=== PATIENT | female | born 1930 | race African-American/Black ===

== ENCOUNTER → 2016-09-11 | Outpatient (CLI) | payer MEDICARE, BC ==
--- NOTE | 2016-09-12 08:08 | XCELERA REPORT ---
[address] [address] Lower Extremity Arterial Evaluation Name: MIMI VALENTIN Age: 86 yrs Gender: Female : 1930 Patient Status: Outpatient Patient Location: Study Date: 09/11/2016 01:23 PM Procedure: A color flow and duplex scan of the lower extremity arteries was performed bilaterally with velocity and waveform anaylsis. Ankle brachial indicies performed. Reason For Study: ULCER Ordering Physician: NIYAH AGUILAR Performed By: Linwood Durham Measurements and Calculations Right Left POLITICAL RESEARCH SCIENTIST PSV 137.5 122.6 cm/sec Prox PFA PSV -113.1 -109.6 cm/sec Dist SFA PSV -130.4 -143.2 cm/sec Prox Pop A PSV 145.8 90.4 cm/sec Dist MEHRAN PSV 51.1 cm/sec Prox HULLER OPERATOR PSV 67.2 cm/sec Dist HULLER OPERATOR PSV 33.2 cm/sec Brayan Pedis PSV -65.3 -71.2 cm/sec Right Side Arterial Evaluation Normal velocity, biphasic waveform present, from the Common Femoral artery to the Popliteal artery. Occluded Anterior and Posterior Tibial arteries. Monophasic reconstitution in the Dorsalis Pedis. None in the Posterior Tibial artery. A collateral Brach of the posterior Tibial artery is noted, monophasic flow, 0.4 cm/sec. The ankle-brachial index was not obtainable. 0-19 % stenosis is noted at the inflow, with severe sequential changes. Left Side Arterial Evaluation Normal velocity, triphasic waveform present, from the Common Femoral artery to the Popliteal artery. Occluded Posterior Tibial arteries. Monophasic reconstitution in the Posterior Tibial. Monophasic flow in the Anterior Tibial artery. The ankle-brachial index was not obtainable. 50-99 % stenosis is noted at the Anterior Tibial artery with , with severe sequential changes. Interpretation Summary Severe hemodynamically significant lesions in the bilateral lower extremities, on duplex imaging, at rest. Really worse on the right, with barely any flow visible in the distal right foot. : NIYAH AGUILAR > Brandon Barnes
--- NOTE | 2016-09-12 10:29 | XCELERA REPORT ---
[address] [address] Lower Extremity Venous Evaluation Name: MIMI VALENTIN Age: 86 yrs Gender: Female : 1930 Patient Status: Outpatient Patient Location: Study Date: 09/11/2016 02:03 PM Reason For Study: ULCER Ordering Physician: NIYAH AGUILAR Performed By: Linwood Durham Right Sided Venous Evaluation Deep venous system evaluatiion shows patent veins with no obstruction or significant reflux identified. Sapheno Femoral junction: No reflux. Femoral vein reflux: No reflux. Greater Saphenous vein, Proximal thigh: reflux: No reflux. Greater Saphenous vein, Distal thigh: reflux:No reflux. Greater Saphenous vein, Proximal below knee: reflux: No reflux. No significant Perforators identified. Left Sided Venous Evaluation Deep venous system evaluatiion shows patent veins with no obstruction or significant reflux identified. Sapheno Femoral junction: No reflux. Femoral vein reflux: No reflux. Greater Saphenous vein, Proximal thigh: reflux: No reflux. Greater Saphenous vein, Distal thigh: reflux:No reflux. Greater Saphenous vein, Proximal below knee: reflux: No reflux. No significant Perforators identified. Interpretation Summary No duplex evidence of DVT or obstruction in the bilateral lower extremities. No significant reflux found. : NIYAH AGUILAR > Brandon Barnes
== END ==
LOC: SP 12:22
PROVIDERS: ATTEND Nurse Practitioner Family
DX: L97.222 Non-pressure chronic ulcer of left calf with fat layer exposed (principal)
CPT/HCPCS: 93925; 93970

== ENCOUNTER 2017-01-23 16:48 | Observation (INO) | payer MEDICARE, BC ==
--- NOTE | 2017-01-23 17:40 | RADIOLOGY REPORT (SQ) ---
EXAM DESCRIPTION: CHEST SINGLE VIEW COMPLETED DATE/TIME: 01/23/2017 5:25 pm REASON FOR STUDY: evaluate for free air COMPARISON: 10/28/2015 EXAM PARAMETERS: NUMBER OF VIEWS: One view. TECHNIQUE: Single frontal radiographic view of the chest acquired. RADIATION DOSE: NA LIMITATIONS: None. FINDINGS: LUNGS AND PLEURA: No consolidation, masses or pneumothorax. Similar left basilar scarring at the costophrenic angle. No significant pleural effusion. MEDIASTINUM AND HILAR STRUCTURES: Stable. HEART AND VASCULAR STRUCTURES: Stable. BONES: No acute findings. HARDWARE: None in the chest. OTHER: No free intraperitoneal gas identified. IMPRESSION: NO ACUTE RADIOGRAPHIC FINDING IN THE CHEST.No free intraperitoneal gas identified. TECHNICAL DOCUMENTATION: JOB ID: [id number]
--- NOTE | 2017-01-23 18:28 | ER Document Report ---
ED General - General Chief Complaint: Vomiting Stated Complaint: ABDOMINAL PAIN Time Seen by Provider: 01/23/17 18:09 Mode of Arrival: Ambulatory Information source: Patient Notes: 86-year-old female hypertension, arthritis, GERD who presents to the emergency room with an episode of nausea vomiting and upper abdominal discomfort after eating an orange. He was given IV Zofran by EMS. She states her symptoms have resolved. This time, she any discomfort. Surgical history: Appendectomy, cholecystectomy, hysterectomy TRAVEL OUTSIDE OF THE [place] IN LAST 30 DAYS: No - HPI Onset: Just prior to arrival Onset/Duration: Sudden Quality of pain: Dull Severity: Mild Pain Level: 1 Associated symptoms: Nausea, Vomiting. denies: Chills, Diarrhea, Fever, Sinus pain/drainage Exacerbated by: Denies Relieved by: Denies Similar symptoms previously: No Recently seen / treated by doctor: No - Related Data Allergies/Adverse Reactions: No Known Allergies Allergy (Verified 01/23/17 17:01) Past Medical History - General Information source: Patient - Social History Smoking Status: Never Smoker Cigarette use (# per day): No Chew tobacco use (# tins/day): No Frequency of alcohol use: None Drug Abuse: None Lives with: Alone Family History: Reviewed & Not Pertinent Patient has suicidal ideation: No Patient has homicidal ideation: No - Past Medical History Cardiac Medical History: Reports: Hx Congestive Heart Failure, Hx Hypercholesterolemia, Hx Hypertension Pulmonary Medical History: Reports: Hx Asthma Endocrine Medical History: Reports: Hx Diabetes Mellitus Type 2 Musculoskeltal Medical History: Reports Hx Arthritis Past Surgical History: Reports: Hx Appendectomy, Hx Cardiac Surgery - Stent, Hx Cholecystectomy, Hx Hysterectomy, Hx Orthopedic Surgery - bilateral knee replacement - Immunizations Hx Diphtheria, Pertussis, Tetanus Vaccination: Yes Review of Systems - Review of Systems Constitutional: denies: Chills, Fever EENT: No symptoms reported Cardiovascular: No symptoms reported Respiratory: No symptoms reported Gastrointestinal: See HPI Genitourinary: No symptoms reported Female Genitourinary: No symptoms reported Musculoskeletal: No symptoms reported Skin: No symptoms reported Hematologic/Lymphatic: No symptoms reported Neurological/Psychological: No symptoms reported Physical Exam - Vital signs Vitals: Resp 20 01/23/17 17:01 Notes: Physical exam: GENERAL: 6-year-old female, alert and oriented 3, lying in the stretcher. Patient is comfortable in no distress HEAD: Atraumatic, normocephalic. EYES: Pupils equal round and reactive to light, extraocular movements intact, sclera anicteric, conjunctiva are normal. ENT: TMs normal, nares patent, oropharynx clear without exudates. Moist mucous membranes. NECK: Normal range of motion, supple without lymphadenopathy or JVD. LUNGS: Breath sounds clear to auscultation bilaterally and equal. No wheezes rales or rhonchi. HEART: Regular rate and rhythm without murmurs, rubs or gallops. ABDOMEN: Soft, normoactive bowel sounds. No tenderness to palpation. No guarding, no rebound. No masses appreciated. EXTREMITIES: Normal range of motion, no pitting or edema. No clubbing or cyanosis. NEUROLOGICAL: Cranial nerves II through XII grossly intact. Normal speech, normal gait. PSYCH: Normal mood, normal affect. SKIN: Warm, Dry, normal turgor, no rashes or lesions noted. Bedside ultrasound: No evidence of AAA Course - Re-evaluation Re-evalutation: 01/23/17 22:32 The patient as well as her son who is at the bedside about the pulmonary nodule. Informed them that this needs to be followed up by the primary care doctor. The presenting symptoms, the plan will be for gentle IV fluids and observation - Vital Signs Vital signs: Temp Pulse Resp BP Pulse Ox 97.7 F 18 183/73 H 95 01/23/17 17:04 01/23/17 18:01 01/23/17 18:01 01/23/17 18:01 - Laboratory Result Diagrams: 01/23/17 18:42 01/23/17 18:42 Laboratory results interpreted by me: 01/23/17 01/23/17 01/23/17 17:40 18:42 18:42 WBC 12.7 H MCH 26.6 L RDW 19.0 H Seg Neuts % (Manual) 87 H Band Neutrophils % 1 L Lymphocytes % (Manual) 8 L Abs Neuts (Manual) 11.2 H BUN 24 H Glucose 128 H AST 53 H ALT 69 H Alkaline Phosphatase 224 H Urine Protein 100 H Urine Ascorbic Acid 20 H - Diagnostic Test Radiology reviewed: Image reviewed, Reports reviewed - DVT shows no intra- abdominal pathology. It does show pulmonary nodule. - EKG Interpretation by Me Rate: Normal Rhythm: NSR - EKG shows normal sinus rhythm with a ventricular rate of 70, left axis deviation, no acute ST-T wave changes Discharge - Discharge Clinical Impression: Vomiting With nausea, DeHydration Condition: Stable Disposition: ADMITTED OBSERVATION Admitting Provider: Yovany Salmeron Unit Admitted: Telemetry
[2017-01-23 18:31] LABS: APPEARANCE,URINE CLEAR; BILIRUBIN,URINE NEGATIVE (NEGATIVE); GLUCOSE, URINE NEGATIVE (NEGATIVE); KETONES,URINE NEGATIVE (NEGATIVE); LEUKOCYTE ESTERASE,URINE NEGATIVE (NEGATIVE); NITRITE,URINE NEGATIVE (NEGATIVE); PROTEIN,URINE 100 mg/dL (NEGATIVE); URINE SPECIFIC GRAVITY 1.008; UROBILINOGEN,URINE NEGATIVE mg/dL (<2.0)
[2017-01-23 18:54] LABS: HEMATOCRIT 40.4 % (36.0-47.0); HEMOGLOBIN 13.1 g/dL (12.0-15.5); HGB HCT DIFFERENCE -1.1; MEAN CORPUSCULAR HEMOGLOBIN 26.6 pg (27.0-33.4); MEAN CORPUSCULAR HGB CONC 32.4 g/dL (32.0-36.0); MEAN CORPUSCULAR VOLUME 82 fl (80-97); RED BLOOD COUNT 4.93 10^6/uL (3.72-5.28); WHITE BLOOD COUNT 12.7 10^3/uL (4.0-10.5)
[2017-01-23 19:13] LABS: ALANINE AMINOTRANSFERASE 69 U/L (9-52); ALKALINE PHOSPHATASE 224 U/L (38-126); ANION GAP 10 (5-19); ASPARTATE AMINO TRANSFERASE 53 U/L (14-36); BILIRUBIN,DIRECT 0.3 mg/dL (0.0-0.4); BILIRUBIN,TOTAL 0.6 mg/dL (0.2-1.3); BLOOD UREA NITROGEN 24 mg/dL (7-20); CALCIUM 9.3 mg/dL (8.4-10.2); CARBON DIOXIDE 28 mmol/L (22-30); CHLORIDE 101 mmol/L (98-107); CREATININE RESULT 0.83 mg/dL (0.52-1.25); GLUCOSE 128 mg/dL (75-110); POTASSIUM 4.3 mmol/L (3.6-5.0); PROTHROMBIN TIME 13.2 SEC (11.4-15.4); SODIUM 138.6 mmol/L (137-145); TOTAL PROTEIN 6.8 g/dL (6.3-8.2)
[2017-01-23 19:21] LABS: BAND NEUTROPHILS % (MANUAL) 1 % (3-5); BASOPHILS % (MANUAL) 0 % (0-2); EOSINOPHILS % (MANUAL) 1 % (0-6); LYMPHOCYTES % (MANUAL) 8 % (13-45); TOTAL CELLS COUNTED 100
[2017-01-23 19:22] LABS: ANISOCYTOSIS 2+
[2017-01-23 19:24] LABS: HYPOCHROMASIA SLIGHT; OVALOCYTES 2+; POIKILOCYTOSIS 1+
[2017-01-23 19:25] LABS: PLATELET CLUMPS PRESENT; TARGET CELLS SLIGHT; TEAR DROP CELLS SLIGHT
[2017-01-23 19:26] LABS: TOXIC GRANULATION SLIGHT
--- NOTE | 2017-01-23 21:13 | RADIOLOGY REPORT (SQ) ---
EXAM DESCRIPTION: CT ABD/PELVIS WITH IV ONLY COMPLETED DATE/TIME: 01/23/2017 8:45 pm REASON FOR STUDY: abd pain COMPARISON: 12/05/2011 and 03/26/2013 TECHNIQUE: CT scan of the abdomen and pelvis performed using helical scanning technique with dynamic intravenous contrast injection. No oral contrast. Images reviewed with lung, soft tissue, and bone windows. Reconstructed coronal and sagittal MPR images reviewed. Delayed images for evaluation of the urinary system also acquired. All images stored on PACS. All CT scanners at this facility use dose modulation, iterative reconstruction, and/or weight based d osing when appropriate to reduce radiation dose to as low as reasonably achievable (ALARA). [facility]: Dose Right [facility]: CareDose [facility]: Dose Right [facility]: Teradose 4D [facility]: [employer] CONTRAST TYPE AND DOSE: contrast/concentration: Isovue 370.00 mg/ml; Total Contrast Delivered: 94.0 ml; Total Saline Delivered: 71.0 ml RENAL FUNCTION: GFR > 60. RADIATION DOSE: Up-to-date CT equipment and radiation dose reduction techniques were employed. CTDIv ol: 11.0 - 15.6 mGy. DLP: 1393 mGy-cm.. LIMITATIONS: None. FINDINGS: LOWER CHEST: New 16 x 24 mm low-density nodule in the right infrahilar lower lobe. Small left pleural effusion and lower lobe subsegmental atelectasis. LIVER: Normal size. No masses or dilated ducts. SPLEEN: Normal size. No focal lesions. PANCREAS: No masses. No significant calcifications. No adjacent inflammation or peripancreatic fluid collections. Pancreatic duct not dilated. GALLBLADDER: Surgically absent. ADRENAL GLANDS: No significant masses or asymmetry. RIGHT KIDNEY AND URETER: Slightly increased size and number of cysts. No solid masses. No signific ant calcifications. No hydronephrosis or hydroureter. LEFT KIDNEY AND URETER: Slightly increased size and number of cysts. No solid masses. No significa nt calcifications. No hydronephrosis or hydroureter. AORTA AND VESSELS: No aneurysm. No dissection. Renal arteries, SMA, celiac without stenosis. RETROPERITONEUM: No retroperitoneal adenopathy, hemorrhage or masses. BOWEL AND PERITONEAL CAVITY: Sigmoid diverticulosis. No inflammatory changes. No free fluid or perit agudelo masses. APPENDIX: Not visualized. PELVIS: Prior hysterectomy. No free fluid. Normal bladder. ABDOMINAL WALL: No masses. No hernias. BONES: No significant or acute findings. OTHER: No other significant finding. IMPRESSION: NO ACUTE FINDING IN THE ABDOMEN OR PELVIS ON CT SCAN WITH IV CONTRAST.New 16 x 24 mm low -density nodule in the right infrahilar lower lobe. Small left pleural effusion and lower lobe subseg mental atelectasis. TECHNICAL DOCUMENTATION: JOB ID: [id number] Quality ID # [id number]: Final reports with documentation of one or more dose reduction techniques (e.g., Au tomated exposure control, adjustment of the mA and/or kV according to patient size, use of iterative reconstruction technique) 2010 [employer]- All Rights Reserved
[2017-01-23] MEDS ORDERED: NORMAL SALINE 1000 ML 1,000 ML IV PRN (21:59)
[2017-01-23] MEDS ORDERED: ONDANSETRON HCL INJ/PF 4 MG/2 ML SDV IV ONE (22:00)
--- NOTE | 2017-01-23 22:24 | EKG REPORT ---
SEVERITY:- ABNORMAL ECG - SINUS RHYTHM PROBABLE LEFT ATRIAL ABNORMALITY LEFT AXIS DEVIATION LEFT VENTRICULAR HYPERTROPHY : Confirmed by: Caio Rebollar 23-Jan-2017 22:23:57
[2017-01-24] MEDS ORDERED: DEXTROSE 50%-WATER 25 GM/50 ML DISP.SYRIN IV PRN ×2 (00:46)
[2017-01-24] MEDS ORDERED: DEXTROSE 40% GEL 15 GM TUBE PO PRN ×2 (00:46)
[2017-01-24] MEDS ORDERED: INSULIN LISPRO 100 UNIT/ML 3 ML VIAL SUBCUT PRN (00:46)
[2017-01-24] MEDS ORDERED: GLUCAGON,HUMAN RECOMB 1 MG INJ IM PRN (00:46)
[2017-01-24] MEDS ORDERED: NORMAL SALINE 1000 ML 500 ML IV PRN (00:48)
[2017-01-24] MEDS ORDERED: PROMETHAZINE HCL 25 MG TABLET PO PRN (00:55)
[2017-01-24 00:57] LABS: ADD ON TESTING BLD IN LAB ACKNOWLEDGE
--- NOTE | 2017-01-24 01:12 | PDOC H&P ---
History of Present Illness Admission Date/PCP: 01/23/17 22:25 Shakira Patient complains of: N/V, epig pain History of Present Illness: MIMI VALENTIN is a 86 year old -[place] female with underlying hypertension , stented coronary artery, diastolic congestive heart failure, arthritis, mild reflux, diet-controlled diabetes mellitus, hypothyroidism, and hyperlipidemia who presents to the emergency room for evaluation of sudden onset of nausea vomiting and upper abdominal discomfort earlier the day of admission after eating an orange. Patient has been discussed with emergency room physician who evaluated the patient. Patient feels better now, with epigastric pain having resolved. Still mildly nauseated. No chest pain. No diarrhea or dysuria. No friends or family with similar complaints. Laboratory results are listed in [facility] and are reviewed. X-ray summary results are listed below, with full report(s) reviewed. . EKG reviewed and compared to prior tracing from October 27 of last year. Social history/personal habits: . Lives alone. 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 No use of alcohol tobacco or illicit drugs. Allergies/adverse reactions are listed in [facility] and are reviewed. Home medications initially autopopulated into [employer] may not accurately reflect patient's true medications, dosages, and/or frequencies. dictaphone technician to reconcile medications. Unfortunately, patient not certain of all medications/dosages/frequencies. REVIEW OF SYSTEMS: Constitutional: No fever or chills. Eyes: Wears reading glasses. ENT: No swallowing problems or complaints. Denies hearing loss. Pulmonary: No current complaints. Cardiovascular: No current complaints, including chest pain. Gastrointestinal: See history and present illness. Skin: No current complaints, including rashes. Hematologic: Denies easy bruising. Neurologic: No current complaints, including numbness or tingling. Musculoskeletal: Joint pain from arthritis. Psychiatric: Denies anxiety or depression. Endocrine: No current complaints, including polyuria. Genitourinary: No current complaints, including dysuria. PHYSICAL EXAMINATION: 5 feet tall. 74.8 kg. BMI 32.2 kg/m. Blood pressure 194/72. Pulse 62 and regular. 97% saturation on room air. Respirations are 21 and unlabored. Temperature 97.7. Slightly obese otherwise well-developed elderly -[place] female who appears perhaps a bit younger than her stated age. Pleasant awake alert and cooperative, although appears perhaps slightly fatigued. Mildly anxious, without agitation. Son is present at her side; patient approves. Skin is warm and dry. No grossly obvious evidence of rash in areas of skin examined. No subcutaneous nodules palpated. ENT: Hearing grossly normal to normal conversation. Tongue midline on protrusion pink and slightly tacky. Eyes: No scleral icterus. Pupils equal and reactive to light at 4 mm. [place] conjunctivae. Neck is supple and nontender to gentle active range of motion and palpation. Midline trachea. No palpable thyroid nodule mass enlargement or tenderness. Lymphatic: No palpable cervical or clavicular nodes. Neck and lymphatic exams limited by patient body habitus. Psychiatric: Reasonable insight into acute and chronic medical issues. Oriented to time location and why here. Lungs: Auscultation reveals clear and equal breath sounds bilaterally. No use of accessory respiratory muscles. Cardiovascular: Heart regular rate and rhythm, without gallop murmur or rub. No carotid or abdominal aortic bruits. No ankle or pedal edema. Faintly palpable dorsalis pedis pulses. Abdomen:soft mildly distended nontender with positive bowel sounds. Unable to adequately evaluate abdomen for masses or organomegaly due to distention. Extremities: Feet are warm and dry. No calf tenderness to compression. No grossly obvious visual evidence of calf swelling. Gentle manipulation of lower extremities fails to reveal any obvious evidence of injury or instability to knees hips or ankles. Neurologic: Moves upper extremities grossly normally. Patellar reflexes absent. Absent Babinski. Light touch is intact at feet. Dorsiflexion and plantarflexion of feet 5 / 5 and symmetric. Past Medical History Cardiac Medical History: Reports: Congestive Heart Failure - Diastolic, Coronary Artery Disease - Previous stent implant, Hyperlipidema, Hypertension Denies: DVT, Pulmonary Embolism Pulmonary Medical History: Denies: Asthma, Chronic Obstructive Pulmonary Disease (COPD), Sleep Apnea EENT Medical History: Reports: Eyes - Reading glasses; prior cataract surgery Denies: Ears, Throat Neurological Medical History: Denies: Hemorrhagic CVA, Ischemic CVA, Seizures Endocrine Medical History: Reports: Diabetes Mellitus Type 2 - Diet controlled, Hypothyroidism Denies: Diabetes Mellitus Type 1, Hyperthyroidism Renal/ Medical History: Reports: None GI Medical History: Reports: Gastroesophageal Reflux Disease - Mild Denies: Cirrhosis, Hepatitis, Peptic Ulcer Disease Musculoskeltal Medical History: Reports: Arthritis Skin Medical History: Reports: None Psychiatric Medical History: Denies: Alcohol Dependency, Depression, General Anxiety Disorder, Substance Abuse, Tobacco Dependency Hematology: Reports: None Infectious Medical History: Denies: Clostridium Difficile, Hepatitis B, Hepatitis C, Methicillin- Resistant Staph Aureus Past Surgical History Past Surgical History: Reports: Appendectomy, Cholecystectomy, Coronary Stent, Hysterectomy, Orthopedic Surgery - bilateral knee replacement; hip replacement, Other - Bilateral cataract surgery Social History Information Source: Patient, Emergency Med Personnel, [facility] Records Lives with: Alone Smoking Status: Never Smoker Frequency of Alcohol Use: None Hx Recreational Drug Use: No Hx Prescription Drug Abuse: No - Advance Directive Resuscitation Status: Full Code Surrogate healthcare decision maker:: Her sons Family History Family History: Reviewed & Not Pertinent Parental Family History Reviewed: Yes - Uncertain cause of mother's . Father after stroke. Children Family History Reviewed: Yes - Arthritis Sibling(s) Family History Reviewed.: Yes - Medication/Allergy Home Medications: Amlodipine Besylate [Norvasc 5 mg Tablet] 10 mg PO DAILY 01/24/17 Clonidine HCl [Catapres 0.2 mg Tablet] 0.2 mg PO Q12 01/24/17 Furosemide [Lasix] 80 mg PO DAILY 01/24/17 Hydrocodone/Acetaminophen [Hydrocodon-Acetaminophen 5-325] 1 tab PO Q6HP PRN Iron Polysaccharide Complex [Ferrex 150] 150 mg PO DAILY 01/24/17 Levothyroxine Sodium [Synthroid 0.088 mg Tablet] 88 mcg PO DAILY 01/24/17 Lisinopril [Prinivil 40 mg Tablet] 40 mg PO DAILY 01/24/17 Omeprazole 40 mg PO DAILY 01/24/17 Potassium Chloride 20 meq PO DAILY 01/24/17 Pravastatin Sodium [Pravachol] 20 mg PO DAILY 01/24/17 Ondansetron HCl [Zofran 4 mg Tablet] 1 - 2 tab PO Q4H PRN #10 tablet 01/25/17 Allergies/Adverse Reactions: No Known Allergies Allergy (Verified 01/23/17 17:01) Physical Exam Vital Signs: Temp Pulse Resp BP Pulse Ox 97.7 F 23 H 185/73 H 96 01/23/17 17:04 01/24/17 00:01 01/23/17 23:31 01/24/17 00:01 Results Impressions: Chest X-Ray 01/23/17 17:16 IMPRESSION: NO ACUTE RADIOGRAPHIC FINDING IN THE CHEST.No free intraperitoneal gas identified. Abdomen/Pelvis CT 01/23/17 19:36 IMPRESSION: NO ACUTE FINDING IN THE ABDOMEN OR PELVIS ON CT SCAN WITH IV CONTRAST.New 16 x 24 mm low-density nodule in the right infrahilar lower lobe. Small left pleural effusion and lower lobe subsegmental atelectasis. Assessment & Plan - Diagnosis (1) Stented coronary artery Is this a current diagnosis for this admission?: No (2) Epigastric abdominal pain Is this a current diagnosis for this admission?: Yes (3) Leukocytosis Qualifiers: Leukocytosis type: unspecified Qualified Code(s): D72.829 - Elevated white blood cell count, unspecified Is this a current diagnosis for this admission?: YesPlan: Likely secondary to stress from nausea and vomiting. However, will repeat. No outward evidence of source of infection. (4) N&V (nausea and vomiting) Qualifiers: Vomiting type: unspecified Vomiting Intractability: non-intractable Qualified Code(s): R11.2 - Nausea with vomiting, unspecified Is this a current diagnosis for this admission?: YesPlan: Perhaps due to mild episode of food poisoning. Nausea persists slightly. Clear liquid diet. As needed Phenergan. I have strongly encouraged patient not to get out of bed without notifying staff , to avoid a fall with injury. Knee high SCDs for DVT prophylaxis, along with subcutaneous Lovenox. Impression and plans were discussed with patient and son, both of whom concur. Time spent in evaluation and management of patient: 62 minutes. (5) Nodule of right lung Is this a current diagnosis for this admission?: YesPlan: ER physician discussed situation with son and patient. I also discussed in layperson's terms rationale for follow-up with son and patient--to ensure nodule is not cancer. Outpatient follow-up by primary care provider. (6) Elevated LFTs Is this a current diagnosis for this admission?: YesPlan: Chronic mild elevation. Denies underlying biliary disease. (7) Diabetes mellitus type 2 in obese Is this a current diagnosis for this admission?: YesPlan: Diabetic cardiac diet. Accu-Cheks with appropriate sliding scale coverage. Diet controlled. (8) Diastolic CHF Qualifiers: Congestive heart failure chronicity: chronic Qualified Code(s): I50.32 - Chronic diastolic (congestive) heart failure Plan: No evidence of acute exacerbation of same. Resume home medications as appropriate once these have been determined and reviewed. (9) Dyslipidemia Is this a current diagnosis for this admission?: YesPlan: Resume home medications as appropriate once these have been determined and reviewed. (10) Hypothyroid Qualifiers: Hypothyroidism type: unspecified Qualified Code(s): E03.9 - Hypothyroidism, unspecified Is this a current diagnosis for this admission?: YesPlan: TSH pending. Resume home medications as appropriate once these have been determined and reviewed.
[2017-01-24 01:17] LABS: MAGNESIUM 2.1 mg/dL (1.6-2.3)
[2017-01-24 04:44] LABS: ABSOLUTE BASOPHILS # (AUTO) 0.2 10^3/uL (0.0-0.2); ABSOLUTE EOSINOPHILS # (AUTO) 0.2 10^3/uL (0.0-0.6); ABSOLUTE LYMPHOCYTES (AUTO) 1.1 10^3/uL (0.5-4.7); ABSOLUTE MONOCYTES (AUTO) 0.7 10^3/uL (0.1-1.4); BASOPHILS % (AUTO) 1.3 % (0-2); EOSINOPHILS % (AUTO) 1.5 % (0-6); HEMATOCRIT 40.2 % (36.0-47.0); HEMOGLOBIN 13.1 g/dL (12.0-15.5); HGB HCT DIFFERENCE -0.9; LYMPHOCYTES % (AUTO) 9.2 % (13-45); MEAN CORPUSCULAR HEMOGLOBIN 26.3 pg (27.0-33.4); MEAN CORPUSCULAR HGB CONC 32.5 g/dL (32.0-36.0); MEAN CORPUSCULAR VOLUME 81 fl (80-97); MONOCYTES % (AUTO) 5.6 % (3-13); RED BLOOD COUNT 4.97 10^6/uL (3.72-5.28); RED CELL DISTRIBUTION WIDTH 18.7 % (11.5-14.0); SEGMENTED NEUTROPHILS % (AUTO) 82.4 % (42-78); WHITE BLOOD COUNT 12.2 10^3/uL (4.0-10.5)
[2017-01-24] MEDS: ENALAPRILAT DIHYDRATE INJ/PF 1.25 MG/1 ML SDV IV PRN ×2 (04:51→14:54)
[2017-01-24] MEDS ORDERED: HYDRALAZINE HCL INJ/PF 20 MG/1 ML SDV IV PRN (08:46)
[2017-01-24] MEDS: ENOXAPARIN SODIUM INJ 40 MG/0.4 ML DISP.SYRIN SUBCUT SCH (09:35)
[2017-01-24] MEDS: DOCUSATE SODIUM 100 MG CAPSULE PO SCH (09:36)
[2017-01-24] MEDS ORDERED: ONDANSETRON HCL INJ/PF 4 MG/2 ML SDV IV PRN (09:53)
[2017-01-24] MEDS: ACETAMINOPHEN 325 MG TABLET PO PRN (15:05)
[2017-01-24] MEDS ORDERED: HYDROCODONE/ACETAMINOPHEN 5-325 MG TABLET PO PRN (15:32)
--- NOTE | 2017-01-24 15:40 | PDOC PROGRESS REPORT ---
Subjective Progress Note for:: 01/24/17 Subjective:: Patient seen on morning rounds. She is resting comfortably in bed at the present time. She continues to complain of mild nausea, no with no vomiting. She states she has muscle aches and pains. She also feels generally weak at the present time. She states the symptoms began approximately 24 hours ago. She has had no diarrhea. She is able to drink without vomiting. She has no sick contacts at home. She denies next significant arthralgias or myalgias. She denies shortness of breath, chest pain or dyspnea. She denies any chest pain, dizziness or headache. Rest of the review of systems are negative. Physical Exam Vital Signs: Temp Pulse Resp BP Pulse Ox 98.3 F 76 17 183/57 H 100 01/24/17 10:54 01/24/17 10:54 01/24/17 10:54 01/24/17 10:54 01/24/17 10:54 Intake & Output 01/23/17 01/24/17 01/25/17 06:59 06:59 06:59 Intake Total 250 780 Output Total 1000 Balance 250 -220 Weight 83 kg General appearance: PRESENT: no acute distress, obese, well-developed, well- nourished Head exam: PRESENT: atraumatic, normocephalic Eye exam: PRESENT: conjunctiva pink, EOMI, PERRLA. ABSENT: scleral icterus Ear exam: PRESENT: normal external ear exam Mouth exam: PRESENT: moist, tongue midline Neck exam: ABSENT: carotid bruit, JVD, lymphadenopathy, thyromegaly Respiratory exam: PRESENT: clear to auscultation solitario. ABSENT: rales, rhonchi, wheezes Cardiovascular exam: PRESENT: RRR. ABSENT: diastolic murmur, rubs, systolic murmur Pulses: PRESENT: normal dorsalis pedis pul Vascular exam: PRESENT: normal capillary refill GI/Abdominal exam: PRESENT: normal bowel sounds, soft. ABSENT: distended, guarding, mass, organolmegaly, rebound, tenderness Rectal exam: PRESENT: deferred Extremities exam: PRESENT: full ROM. ABSENT: calf tenderness, clubbing, pedal edema Musculoskeletal exam: PRESENT: ambulatory, full ROM, normal inspection Neurological exam: PRESENT: alert, awake, oriented to person, oriented to place , oriented to time, oriented to situation, CN II-XII grossly intact. ABSENT: motor sensory deficit Psychiatric exam: PRESENT: appropriate affect, normal mood. ABSENT: homicidal ideation, suicidal ideation Skin exam: PRESENT: dry, intact, warm. ABSENT: cyanosis, rash Results Laboratory Results: 01/24/17 04:06 01/24/17 04:06 WBC 12.2 H RBC 4.97 Hgb 13.1 Hct 40.2 MCV 81 MCH 26.3 L MCHC 32.5 RDW 18.7 H Plt Count 484 H Seg Neutrophils % 82.4 H Lymphocytes % 9.2 L Monocytes % 5.6 Eosinophils % 1.5 Basophils % 1.3 Absolute Neutrophils 10.0 H Absolute Lymphocytes 1.1 Absolute Monocytes 0.7 Absolute Eosinophils 0.2 Absolute Basophils 0.2 Impressions: Chest X-Ray 01/23/17 17:16 IMPRESSION: NO ACUTE RADIOGRAPHIC FINDING IN THE CHEST.No free intraperitoneal gas identified. Abdomen/Pelvis CT 01/23/17 19:36 IMPRESSION: NO ACUTE FINDING IN THE ABDOMEN OR PELVIS ON CT SCAN WITH IV CONTRAST.New 16 x 24 mm low-density nodule in the right infrahilar lower lobe. Small left pleural effusion and lower lobe subsegmental atelectasis. Assessment & Plan - Diagnosis (1) N&V (nausea and vomiting) Qualifiers: Vomiting type: unspecified Vomiting Intractability: non-intractable Qualified Code(s): R11.2 - Nausea with vomiting, unspecified Is this a current diagnosis for this admission?: YesPlan: She has had no further vomiting. She is tolerating clear liquid with mild nausea. Zofran is improving her symptoms. (2) Epigastric abdominal pain Is this a current diagnosis for this admission?: YesPlan: Continue PPI (3) Diabetes mellitus type 2 in obese Is this a current diagnosis for this admission?: YesPlan: Continue home medications and sliding scale coverage (4) Nodule of right lung Is this a current diagnosis for this admission?: YesPlan: Continue monitoring every [address] follow up (5) Diastolic heart failure Qualifiers: Heart failure chronicity: chronic Qualified Code(s): I50.32 - Chronic diastolic (congestive) heart failure Is this a current diagnosis for this admission?: YesPlan: Patient appears euvolemic at the present time. Will continue current home medications - Time Time Spent with patient: 25-34 minutes Critical Time spent with patient: 15-24 minutes Medications reviewed and adjusted accordingly: Yes Anticipated discharge: Home with Homehealth
[2017-01-24] MEDS ORDERED: POTASSIUM CHLORIDE 10 MEQ TABLET.SA PO ONE (16:30)
[2017-01-24] MEDS ORDERED: LISINOPRIL 10 MG TABLET PO ONE (16:30)
[2017-01-24] MEDS: CLONIDINE HCL 0.2 MG TABLET PO SCH (21:53)
[2017-01-25] MEDS ORDERED: GUAIFENESIN SYRP 200 MG/10 ML UDC PO PRN (04:52)
[2017-01-25] MEDS: ENOXAPARIN SODIUM INJ 40 MG/0.4 ML DISP.SYRIN SUBCUT SCH (08:30)
[2017-01-25] MEDS ORDERED: FUROSEMIDE 80 MG TABLET PO SCH (10:00)
[2017-01-25] MEDS ORDERED: IRON POLYSACCHARIDES COMPLEX 150 MG CAPSULE PO SCH (10:00)
[2017-01-25] MEDS ORDERED: LANSOPRAZOLE 30 MG TAB.RAP.DR PO SCH (10:00)
[2017-01-25] MEDS ORDERED: LISINOPRIL 10 MG TABLET PO SCH (10:00)
[2017-01-25] MEDS ORDERED: POTASSIUM CHLORIDE 10 MEQ TABLET.SA PO SCH (10:00)
[2017-01-25] MEDS ORDERED: AMLODIPINE BESYLATE 5 MG TABLET PO SCH (10:00)
[2017-01-25] MEDS ORDERED: FUROSEMIDE 40 MG TABLET PO SCH (10:00)
[2017-01-25] MEDS ORDERED: LEVOTHYROXINE SODIUM 0.088 MG TABLET PO SCH (10:00)
[2017-01-25] MEDS: DOCUSATE SODIUM 100 MG CAPSULE PO SCH (10:58)
[2017-01-25] MEDS: CLONIDINE HCL 0.2 MG TABLET PO SCH (10:59)
[2017-01-25] MEDS ORDERED: POLYETHYLENE GLYCOL 3350 POWDER 17 GM/1 PACKET PO ONE (11:00)
[2017-01-25 11:58] VITALS: BP 191/69
[2017-01-25] MEDS: ACETAMINOPHEN 325 MG TABLET PO PRN (14:07)
--- NOTE | 2017-01-25 14:51 | PDOC DISCHARGE SUMMARY ---
General - Admit/Disc Date/PCP Admission Date/Primary Care Provider: 01/24/17 00:48 Discharge Date: 01/25/17 - Discharge Diagnosis (1) N&V (nausea and vomiting) Is this a current diagnosis for this admission?: YesSummary: Resolved. Likely viral in origin (2) Epigastric abdominal pain Is this a current diagnosis for this admission?: YesSummary: Resolved (3) Diabetes mellitus type 2 in obese Is this a current diagnosis for this admission?: YesSummary: Continue home medications (4) Nodule of right lung Is this a current diagnosis for this admission?: YesSummary: Continue yearly surveillance (5) Diastolic heart failure Is this a current diagnosis for this admission?: YesSummary: Patient is euvolemic continue current medications - Additional Information Resuscitation Status: Full Code Home Medications: Amlodipine Besylate [Norvasc 5 mg Tablet] 10 mg PO DAILY 01/24/17 Clonidine HCl [Catapres 0.2 mg Tablet] 0.2 mg PO Q12 01/24/17 Furosemide [Lasix] 80 mg PO DAILY 01/24/17 Hydrocodone/Acetaminophen [Hydrocodon-Acetaminophen 5-325] 1 tab PO Q6HP PRN Iron Polysaccharide Complex [Ferrex 150] 150 mg PO DAILY 01/24/17 Levothyroxine Sodium [Synthroid 0.088 mg Tablet] 88 mcg PO DAILY 01/24/17 Lisinopril [Prinivil 40 mg Tablet] 40 mg PO DAILY 01/24/17 Omeprazole 40 mg PO DAILY 01/24/17 Potassium Chloride 20 meq PO DAILY 01/24/17 Pravastatin Sodium [Pravachol] 20 mg PO DAILY 01/24/17 Ondansetron HCl [Zofran 4 mg Tablet] 1 - 2 tab PO Q4H PRN #10 tablet 01/25/17 History of Present Illness Patient complains of: Nausea, vomiting and abdominal pain History of Present Illness: MIMI VALENTIN is a 86 year old -[place] female with underlying hypertension , stented coronary artery, diastolic congestive heart failure, arthritis, mild reflux, diet-controlled diabetes mellitus, hypothyroidism, and hyperlipidemia who presents to the emergency room for evaluation of sudden onset of nausea, vomiting and upper abdominal discomfort earlier the day of admission after eating an orange. Patient has been discussed with emergency room physician who evaluated the patient. Patient feels better now, with epigastric pain having resolved. Still mildly nauseated. No chest pain. No diarrhea or dysuria. Hospital Course Hospital Course: The patient was admitted to the telemetry floor on observation. She had no further vomiting. She did have nausea over the next 24hrs. She was gently rehydrated with IV normal saline and given zofran IV for nausea. She was able to tolerate a clear liquid diet. Today she feels much improved. She was able to tolerate a regular diabetic diet. Her breen was removed and she was able to void. She had a normal bowel movement prior to discharge. She declined the need for home health Physical Exam Vital Signs: Temp Pulse Resp BP Pulse Ox 97.9 F 64 18 191/69 H 96 01/25/17 11:20 01/25/17 11:20 01/25/17 11:20 01/25/17 11:20 01/25/17 11:20 Intake & Output 01/24/17 01/25/17 01/26/17 06:59 06:59 06:59 Intake Total 250 2240 890 Output Total 1725 Balance 250 515 890 Weight 83 kg 85.9 kg General appearance: PRESENT: no acute distress, obese, well-developed, well- nourished Head exam: PRESENT: atraumatic, normocephalic Eye exam: PRESENT: conjunctiva pink, EOMI, PERRLA. ABSENT: scleral icterus Ear exam: PRESENT: normal external ear exam Mouth exam: PRESENT: moist, tongue midline Neck exam: ABSENT: carotid bruit, JVD, lymphadenopathy, thyromegaly Respiratory exam: PRESENT: clear to auscultation solitario. ABSENT: rales, rhonchi, wheezes Cardiovascular exam: PRESENT: RRR. ABSENT: diastolic murmur, rubs, systolic murmur Pulses: PRESENT: normal dorsalis pedis pul Vascular exam: PRESENT: normal capillary refill GI/Abdominal exam: PRESENT: normal bowel sounds, soft. ABSENT: distended, guarding, mass, organolmegaly, rebound, tenderness Rectal exam: PRESENT: deferred Extremities exam: PRESENT: full ROM. ABSENT: calf tenderness, clubbing, pedal edema Neurological exam: PRESENT: alert, awake, oriented to person, oriented to place , oriented to time, oriented to situation, CN II-XII grossly intact. ABSENT: motor sensory deficit Psychiatric exam: PRESENT: appropriate affect, normal mood. ABSENT: homicidal ideation, suicidal ideation Skin exam: PRESENT: dry, intact, warm. ABSENT: cyanosis, rash Results Laboratory Results: 01/24/17 04:06 Impressions: Chest X-Ray 01/23/17 17:16 IMPRESSION: NO ACUTE RADIOGRAPHIC FINDING IN THE CHEST.No free intraperitoneal gas identified. Abdomen/Pelvis CT 01/23/17 19:36 IMPRESSION: NO ACUTE FINDING IN THE ABDOMEN OR PELVIS ON CT SCAN WITH IV CONTRAST.New 16 x 24 mm low-density nodule in the right infrahilar lower lobe. Small left pleural effusion and lower lobe subsegmental atelectasis. Qualifiers PATEINT BEING DISCHARGED WITH ANY OF THE FOLLOWING DIAGNOSIS?: No Plan Discharge Plan: Home with family Time Spent: Less than 30 Minutes
[2017-01-26] MEDS ORDERED: POLYETHYLENE GLYCOL 3350 POWDER 17 GM/1 PACKET PO SCH (10:00)
== END 2017-01-25 14:45 | disposition home or self-care (01) ==
LOC: ER 16:48 → UNDOADMOB 22:25 → EH 22:25 → 5 01-24 01:15 → EH 01-24 01:15
PROVIDERS: ADMIT Family Medicine; ATTEND Family Medicine
DX: R11.2 Nausea with vomiting, unspecified (principal); R10.13 Epigastric pain; E11.9 Type 2 diabetes mellitus without complications; E66.9 Obesity, unspecified; R91.1 Solitary pulmonary nodule; I11.0 Hypertensive heart disease with heart failure; I50.32 Chronic diastolic (congestive) heart failure; D72.829 Elevated white blood cell count, unspecified; R79.89 Other specified abnormal findings of blood chemistry; J90 Pleural effusion, not elsewhere classified; J98.11 Atelectasis; K21.9 Gastro-esophageal reflux disease without esophagitis; E03.9 Hypothyroidism, unspecified; E78.5 Hyperlipidemia, unspecified; M19.90 Unspecified osteoarthritis, unspecified site; I25.10 Atherosclerotic heart disease of native coronary artery without angina pectoris; R53.1 Weakness; E86.0 Dehydration; Z79.899 Other long term (current) drug therapy; Z95.5 Presence of coronary angioplasty implant and graft; Z68.32 Body mass index [BMI] 32.0-32.9, adult; Z90.49 Acquired absence of other specified parts of digestive tract; Z90.710 Acquired absence of both cervix and uterus; Z79.891 Long term (current) use of opiate analgesic; Z96.653 Presence of artificial knee joint, bilateral; Z96.649 Presence of unspecified artificial hip joint; Z98.42 Cataract extraction status, left eye; Z98.41 Cataract extraction status, right eye
CPT/HCPCS: 93005; 99285; 96361; 51702; 96374; 36415 ×2; 87086; 82962 ×2; 83735; 84443; 85025 ×2; 85610; 80053; 81001; 84484; 71010; 74177; 93010; A9270 ×17; J3490 ×4; J0360; J1650 ×2; J2405 ×2; J7030; G0378

== ENCOUNTER 2017-07-17 16:17 | Emergency (ER) | payer MEDICARE, BC ==
--- NOTE | 2017-07-17 17:07 | ER Document Report ---
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 Patient is completely asymptomatic at this time and denies chest pain, shortness of breath, increased leg swelling, nausea, vomiting, back pain, abdominal pain or fevers. She follows with Dr. Rapp and has had multiple blood pressure medication adjustments, including adding clonidine 0.3 mg twice daily. She is due for her clonidine and Coreg while in the emergency room. Patient and her son has said that her SBP is frequently in the 200s. TRAVEL OUTSIDE OF THE [place] IN LAST 30 DAYS: No - Related Data Allergies/Adverse Reactions: No Known Allergies Allergy (Verified 01/23/17 17:01) Home Medications: Current Home Medications Aspirin [Aspirin 81 mg Chewable Tablet] 1 tab PO DAILY 07/17/17 [History] Carboxymethyl/Gly/Poly80/Pf [Refresh Optive Advanced Drops] 1 drop .ROUTE ASDIR PRN 07/17/17 [History] Carvedilol 12.5 mg PO BID 07/17/17 [History] Clonidine HCl 0.3 mg PO BID 07/17/17 [History] Ergocalciferol (Vitamin D2) [Vitamin D2] 1 tab PO DAILY 07/17/17 [History] Ketotifen Fumarate [Zaditor] 1 drop .ROUTE ASDIR PRN 07/17/17 [History] Levothyroxine Sodium [Synthroid 0.075 mg Tablet] 1 tab PO DAILY 07/17/17 [ History] Past Medical History - General Information source: Patient, Relative - Social History Smoking Status: Never Smoker Family History: Reviewed & Not Pertinent - Past Medical History Cardiac Medical History: Reports: Hx Congestive Heart Failure - Diastolic, Hx Coronary Artery Disease - Previous stent implant, Hx Hypercholesterolemia, Hx Hypertension Denies: Hx DVT, Hx Pulmonary Embolism Pulmonary Medical History: Denies: Hx Asthma, Hx COPD, Hx Sleep Apnea Neurological Medical History: Denies: Hx Seizures Endocrine Medical History: Reports: Hx Diabetes Mellitus Type 2 - Diet controlled, Hx Hypothyroidism. Denies: Hx Diabetes Mellitus Type 1, Hx Hyperthyroidism GI Medical History: Reports: Hx Gastroesophageal Reflux Disease - Mild. Denies : Hx Cirrhosis, Hx Hepatitis Musculoskeltal Medical History: Reports Hx Arthritis Psychiatric Medical History: Denies: Hx Depression Infectious Medical History: Denies: Hx C-Diff, Hx Hepatitis, Hx MRSA Past Surgical History: Reports: Hx Appendectomy, Hx Cardiac Surgery - Stent, Hx Cholecystectomy, Hx Coronary Stent, Hx Hysterectomy, Hx Orthopedic Surgery - bilateral knee replacement; hip replacement, Other - Bilateral cataract surgery - Immunizations Hx Diphtheria, Pertussis, Tetanus Vaccination: Yes Review of Systems - Review of Systems Notes: REVIEW OF SYSTEMS: CONSTITUTIONAL: -fevers, -chills EENT: -eye pain, -difficulty swallowing, -nasal congestion CARDIOVASCULAR:-chest pain, -syncope. RESPIRATORY: -cough, -SOB GASTROINTESTINAL: -abdominal pain, - nausea, -vomiting, -diarrhea GENITOURINARY: -dysuria, -hematuria MUSCULOSKELETAL: -back pain, -neck pain SKIN: -rash or skin lesions. HEMATOLOGIC: -easy bruising or bleeding. LYMPHATIC: -swollen, enlarged glands. NEUROLOGICAL: -altered mental status or loss of consciousness, -headache, - neurologic symptoms PSYCHIATRIC: -anxiety, -depression. ALL OTHER SYSTEMS REVIEWED AND NEGATIVE. Physical Exam - Vital signs Vitals: Temp Pulse Resp BP Pulse Ox 98.2 F 61 18 253/90 H 98 07/17/17 16:28 07/17/17 16:28 07/17/17 16:28 07/17/17 16:28 07/17/17 16:28 - Notes Notes: PHYSICAL EXAMINATION: GENERAL: Well-appearing, well-nourished and in no acute distress. HEAD: Atraumatic, normocephalic. EYES: Pupils equal round and reactive to light, extraocular movements intact, sclera anicteric, conjunctiva are normal. ENT: nares patent, oropharynx clear without exudates. Moist mucous membranes. NECK: Normal range of motion, supple without lymphadenopathy LUNGS: Breath sounds clear to auscultation bilaterally and equal. No wheezes rales or rhonchi. HEART: Regular rate and rhythm without murmurs ABDOMEN: Soft, nontender, normoactive bowel sounds. No guarding, no rebound. No masses appreciated. EXTREMITIES: Normal range of motion, 1+ pitting edema in legs with compression stockings. No cyanosis. NEUROLOGICAL: Cranial nerves grossly intact. Normal speech, normal gait. Normal sensory and motor exams. PSYCH: Normal mood, normal affect. SKIN: Warm, Dry, normal turgor, no rashes or lesions noted. Course - Re-evaluation Re-evalutation: Patient with asymptomatic hypertension. Provided patient with her evening dose of clonidine 0.3 mg and Coreg 12.5 mg from her home supply and instructed her to follow-up with Dr. Rapp tomorrow for further evaluation and treatment with possible blood pressure medication adjustments. Her BP improved to 196/54 with her home BP meds. Her son mentioned that she had a period where her blood pressure dropped after new medication was started. ACEP guidelines do not recommend adjusting blood pressure medications for patients with asymptomatic hypertension due to the risk of harm to the patient. Explained this to the patient and son and they understand. - Vital Signs Vital signs: Temp Pulse Resp BP Pulse Ox 98.1 F 50 L 18 196/59 H 98 07/17/17 17:47 07/17/17 17:47 07/17/17 17:47 07/17/17 17:47 07/17/17 16:28 Discharge - Discharge Clinical Impression: Asymptomatic hypertension Condition: Stable Disposition: HOME, SELF-CARE Additional Instructions: HIGH BLOOD PRESSURE REQUIRING TREATMENT: Your blood pressure is high. This is called "hypertension." Today's reading was 240/90 (normal is less than 140/90). Your history and exam suggest that this is not a temporary problem. You need treatment of your blood pressure. If left untreated, high blood pressure greatly increases your risk of heart attack and stroke. Please don't ignore this problem. If you have blood pressure medicine but aren't using it regularly, start taking it again. Some simple things you can do to help are: Get some aerobic exercise for at least 20 minutes on a daily basis. (See your doctor before beginning any new exercise program.) Eat a low-fat diet. Lose excess weight. Avoid salty foods and avoid adding salt to any of the foods you eat. Avoid diet pills, decongestants, "energizing" herbs, and other medicines that elevate blood pressure. There are many different medicines that treat blood pressure. If your medication causes unpleasant side effects, call your doctor. There are others you can try. Treating hypertension is a life-long investment in your health. CLONIDINE (CATAPRES): Clonidine is blood-pressure medicine. It works in your brain, making the nervous system relax the blood vessels. This medicine can also be used for symptoms of narcotic withdrawal. Clonidine frequently causes dry mouth, drowsiness, and dizziness. These symptoms go away as you continue to use it. Rest for the first couple of days. Don't drive or use machinery until you're back to normal. Never stop clonidine suddenly! There can be a "rebound" severe increase in blood pressure, headache, and agitation. Be sure you always have enough of the medicine. Call the doctor if you have any new symptoms such as skin rash, weakness, severe lightheadedness, chest pain, headache, or depression. BETA BLOCKERS: You have been given a prescription for a beta-aubrey medication. This class of drugs is used for many purposes, including angina, high blood pressure , heart rhythm disturbances, tremors, and migraines. The medication works by interfering with the effects of the sympathetic nervous system (the sympathetic system has adrenaline-like effects of constricting blood vessels, increasing heart rate, and increasing blood pressure). This medication is usually well-tolerated. However, some patients have side effects such as fatigue, depression, or dizziness. Persons with asthma may develop wheezing from this medicine. Contact your doctor if you are bothered by any side effects. Do not take any cold or allergy medication without first consulting your doctor. Do not stop the medicine without consulting your doctor, as a "rebound " worsening of your condition can result. FOLLOW-UP CARE: If you have been referred to a physician for follow-up care, call the physician s office for an appointment as you were instructed or within the next two days. If you experience worsening or a significant change in your symptoms, notify the physician immediately or return to the Emergency Department at any time for re-evaluation. Referrals: AIXA RAPP MD [Primary Care Provider] - Follow up as needed
[2017-07-17 17:48] VITALS: BP 196/59
== END 2017-07-17 18:04 | disposition home or self-care (01) ==
LOC: ER 16:17
DX: I10 Essential (primary) hypertension (principal); Z79.899 Other long term (current) drug therapy; R60.0 Localized edema; E11.9 Type 2 diabetes mellitus without complications; I25.10 Atherosclerotic heart disease of native coronary artery without angina pectoris; Z95.5 Presence of coronary angioplasty implant and graft
CPT/HCPCS: 99283

== ENCOUNTER → 2017-10-01 | Outpatient (CLI) | payer MEDICARE, BC ==
--- NOTE | 2017-10-01 11:58 | RADIOLOGY REPORT (SQ) ---
EXAM DESCRIPTION: DUPLEX ART/JOSE FLOW COMPLETE COMPLETED DATE/TIME: 10/01/2017 9:34 am REASON FOR STUDY: ESSENTIAL HYPERTENSION I10 ESSENTIAL (PRIMARY) HYPERTENSION COMPARISON: CT abdomen pelvis 01/23/2017 TECHNIQUE: Realtime and static grayscale images acquired. Selected color Doppler, velocities and spe ctral images recorded. LIMITATIONS: Midline bowel gas obscures renal artery origins off the aorta FINDINGS: RIGHT KIDNEY: RENAL ARTERY VELOCITIES: At the right renal hilum 78 cm/sec. Segmental artery velocity 43 cm/sec. RENAL VEIN: Color doppler flow present, patent. VELOCITY RATIO: 1.0. There is some blunting of the systolic upstroke on spectral waveforms KIDNEY: Normal size. Multiple right renal cysts are present, the largest is 4 cm in the right mid- pole kidney. LEFT KIDNEY: RENAL ARTERY VELOCITIES: At the hilum, 43 cm/sec. Segmental artery velocity 57 cm/sec. RENAL VEIN: Color doppler flow present, patent. VELOCITY RATIO: 0.55. Normal waveforms. KIDNEY: Difficult to visualize, in the upper pole left kidney, a large cyst is present, 11 cm in nathen gth which distorts the renal anatomy. This makes Doppler of the left renal artery at the left hilum difficult. BLADDER: Normal. OTHER: No other significant finding. IMPRESSION: Technically difficult study. On the right side, there is some blunting of the right eloina al artery waveform at the hilum which could indicate more proximal renal artery stenosis. On the lef t side, the renal artery at the hilum is difficult to evaluate due to distortion of anatomy by a left upper pole renal cyst. Consider MRA with or without contrast for further evaluation COMMENT: NORMAL RENAL ARTERY/AORTA VELOCITY RATIO IS LESS THAN OR EQUAL TO 3.5. TECHNICAL DOCUMENTATION: JOB ID: [id number]- All Rights Reserved
== END ==
LOC: RAD 07:55
PROVIDERS: ATTEND Internal Medicine Geriatric Medicine
DX: I10 Essential (primary) hypertension (principal)
CPT/HCPCS: 93975

== ENCOUNTER → 2017-10-10 | Outpatient (CLI) | payer MEDICARE, BC ==
--- NOTE | 2017-10-10 11:38 | RADIOLOGY REPORT (SQ) ---
EXAM DESCRIPTION: MRA ABDOMEN WITHOUT COMPLETED DATE/TIME: 10/10/2017 11:06 am REASON FOR STUDY: ABN RADIOLOGIC FINDINGS ON DX IMAGING OF LT KIDNEY (R93.422) R93.422 ABNORMAL RAD IOLOGIC FINDINGS ON DX IMAGING OF LEFT K COMPARISON: Duplex study of the renal arteries dated 10/01/[address] scan dated January 2017 TECHNIQUE: Coronal and Axial imaging with T1 and T2 weighting through the kidneys. Serial contrast e nhanced imaging in the coronal and axial planes. 3-D MIPs performed at the work station. CONTRAST TYPE AND DOSE: None given RENAL FUNCTION: Not available LIMITATIONS: None. FINDINGS: KIDNEYS: Kidneys are of normal size and functionality. Multiple bilateral renal cysts are identified with the largest cyst on the right measuring 4.3 cm and the largest cyst on the left amber uring 10.8 cm. OTHER ABDOMINAL ORGANS: No significant finding. BONY STRUCTURES: No significant finding as visualized. VASCULAR STRUCTURES: No significant finding. RIGHT RENAL ARTERY: A single renal artery. There is some minimal asymmetric impingement on the proxi mal right renal artery which may represent asymmetric atherosclerotic plaquing without significant st enosis. LEFT RENAL ARTERY: 2 left renal arteries are identified with the more superior artery being smaller i n diameter and extending into the lower pole of the left kidney. The more inferior of the 2 left eloina al arteries is larger in diameter with some narrowing of the proximal 2nd left renal artery just dist al to its origin and some minimal asymmetric impingement on the proximal left renal artery which may represent asymmetric atherosclerotic plaquing. AORTA, SMA, CELIAC AXIS AND ILIAC ARTERIES: No significant finding or stenosis. OTHER: No other significant finding. IMPRESSION: 2 left renal arteries are identified as noted above. There is some narrowing of the lar margarita more inferior left renal artery just distal to its origin as noted above suggesting a proximal re nal artery stenosis. Single right renal artery is identified with some minimal asymmetric impingemen t as noted above without significant stenosis. Other findings as noted above. TECHNICAL DOCUMENTATION: JOB ID: [id number]- All Rights Reserved Reading location - IP/workstation name: [email or web address]
== END ==
LOC: RAD 09:53
PROVIDERS: ATTEND Internal Medicine Geriatric Medicine
DX: R93.422 Abnormal radiologic findings on diagnostic imaging of left kidney (principal)
CPT/HCPCS: C8901

== ENCOUNTER 2017-11-15 12:53 | Inpatient (IN) | payer MEDICARE, BC ==
[2017-11-15] MEDS ORDERED: HYDRALAZINE HCL INJ/PF 20 MG/1 ML SDV IV ONE ×2 (13:18→14:39)
[2017-11-15 14:05] LABS: ABSOLUTE BASOPHILS # (AUTO) 0.1 10^3/uL (0.0-0.2); ABSOLUTE EOSINOPHILS # (AUTO) 0.2 10^3/uL (0.0-0.6); ABSOLUTE LYMPHOCYTES (AUTO) 0.9 10^3/uL (0.5-4.7); ABSOLUTE MONOCYTES (AUTO) 0.5 10^3/uL (0.1-1.4); ABSOLUTE NEUT (AUTO) 10.9 10^3/uL (1.7-8.2); BASOPHILS % (AUTO) 0.9 % (0-2); EOSINOPHILS % (AUTO) 1.6 % (0-6); HEMATOCRIT 40.6 % (36.0-47.0); HEMOGLOBIN 13.7 g/dL (12.0-15.5); MEAN CORPUSCULAR HEMOGLOBIN 26.7 pg (27.0-33.4); MEAN CORPUSCULAR HGB CONC 33.6 g/dL (32.0-36.0); MEAN CORPUSCULAR VOLUME 80 fl (80-97); MONOCYTES % (AUTO) 4.2 % (3-13); PLATELET COUNT 620 10^3/uL (150-450); RED BLOOD COUNT 5.11 10^6/uL (3.72-5.28); RED CELL DISTRIBUTION WIDTH 17.8 % (11.5-14.0); SEGMENTED NEUTROPHILS % (AUTO) 86.3 % (42-78); TOTAL CELLS COUNTED % (AUTO) 100 %; WHITE BLOOD COUNT 12.6 10^3/uL (4.0-10.5)
[2017-11-15 14:21] LABS: ALANINE AMINOTRANSFERASE 57 U/L (9-52); ALBUMIN 3.7 g/dL (3.5-5.0); ALKALINE PHOSPHATASE 260 U/L (38-126); ANION GAP 6 (5-19); ASPARTATE AMINO TRANSFERASE 58 U/L (14-36); BILIRUBIN,DIRECT 0.3 mg/dL (0.0-0.4); BILIRUBIN,TOTAL 0.6 mg/dL (0.2-1.3); BLOOD UREA NITROGEN 27 mg/dL (7-20); CALCIUM 9.4 mg/dL (8.4-10.2); CARBON DIOXIDE 35 mmol/L (22-30); CHLORIDE 100 mmol/L (98-107); CREATINE KINASE 57 U/L (30-135); GLUCOSE 113 mg/dL (75-110); POTASSIUM 4.7 mmol/L (3.6-5.0); SODIUM 141.1 mmol/L (137-145); TOTAL PROTEIN 6.3 g/dL (6.3-8.2)
[2017-11-15 14:32] LABS: CREATINE KINASE MB 1.86 ng/mL (<4.55); TROPONIN I 0.017 ng/mL
--- NOTE | 2017-11-15 14:34 | ER Document Report ---
ED General - General Chief Complaint: High Blood Pressure Stated Complaint: BLOOD PRESSURE ISSUES Time Seen by Provider: 11/15/17 13:17 Mode of Arrival: Ambulatory Information source: Patient Notes: 87-year-old female history of hypertension on frusemide clonidine and sartan presents with complaints of high blood pressure. Patient notes her blood pressure has been extremely high over the past 2 days, 200s over 90s, patient denies any complaints, she denies any chest pain shortness breath difficulty breathing. Patient notes she has been taking her blood pressure medication as prescribed, patient is supposed to have surgical intervention TRAVEL OUTSIDE OF THE [place] IN LAST 30 DAYS: No - HPI Onset: Yesterday Onset/Duration: Waxing and waning Quality of pain: No pain Severity: Mild Pain Level: Denies Associated symptoms: Other Exacerbated by: Denies Relieved by: Denies Similar symptoms previously: Yes Recently seen / treated by doctor: Yes - Related Data Allergies/Adverse Reactions: No Known Allergies Allergy (Verified 11/15/17 14:30) Past Medical History - Social History Smoking Status: Never Smoker Cigarette use (# per day): No Chew tobacco use (# tins/day): No Smoking Education Provided: No Frequency of alcohol use: None Drug Abuse: None Family History: Reviewed & Not Pertinent Patient has suicidal ideation: No Patient has homicidal ideation: No - Past Medical History Cardiac Medical History: Reports: Hx Congestive Heart Failure - Diastolic, Hx Coronary Artery Disease - Previous stent implant, Hx Hypercholesterolemia, Hx Hypertension Denies: Hx DVT, Hx Pulmonary Embolism Pulmonary Medical History: Denies: Hx Asthma, Hx COPD, Hx Sleep Apnea Neurological Medical History: Denies: Hx Seizures Endocrine Medical History: Reports: Hx Diabetes Mellitus Type 2 - Diet controlled, Hx Hypothyroidism. Denies: Hx Diabetes Mellitus Type 1, Hx Hyperthyroidism Renal/ Medical History: Denies: Hx Peritoneal Dialysis GI Medical History: Reports: Hx Gastroesophageal Reflux Disease - Mild. Denies : Hx Cirrhosis, Hx Hepatitis Musculoskeltal Medical History: Reports Hx Arthritis Psychiatric Medical History: Denies: Hx Depression Infectious Medical History: Denies: Hx C-Diff, Hx Hepatitis, Hx MRSA Past Surgical History: Reports: Hx Appendectomy, Hx Cardiac Surgery - Stent, Hx Cholecystectomy, Hx Coronary Stent, Hx Hysterectomy, Hx Orthopedic Surgery - bilateral knee replacement; hip replacement, Other - Bilateral cataract surgery - Immunizations Hx Diphtheria, Pertussis, Tetanus Vaccination: Yes Review of Systems - Review of Systems Notes: REVIEW OF SYSTEMS: CONSTITUTIONAL : Denies fever, chills, or sweats. Denies recent illness. Admits to high blood pressure EENT: Denies eye, ear, throat, or mouth pain or symptoms. Denies nasal or sinus congestion or discharge. Denies throat, tongue, or mouth swelling or difficulty swallowing. CARDIOVASCULAR: Denies chest pain. Denies palpitations or racing or irregular heart beat. Denies ankle edema. RESPIRATORY: Denies cough, cold, or chest congestion. Denies shortness of breath, difficulty breathing, or wheezing. GASTROINTESTINAL: Denies abdominal pain or distention. Denies nausea, vomiting , or diarrhea. Denies blood in vomitus, stools, or per rectum. Denies black, tarry stools. Denies constipation. GENITOURINARY: Denies difficulty urinating, painful urination, burning, frequency, blood in urine, or discharge. FEMALE GENITOURINARY: Denies vaginal bleeding, heavy or abnormal periods, irregular periods. Denies vaginal discharge or odor. MUSCULOSKELETAL: Denies back or neck pain or stiffness. Denies joint pain or swelling. SKIN: Denies rash, lesions or sores. HEMATOLOGIC : Denies easy bruising or bleeding. LYMPHATIC: Denies swollen, enlarged glands. NEUROLOGICAL: Denies confusion or altered mental status. Denies passing out or loss of consciousness. Denies dizziness or lightheadedness. Denies headache. Denies weakness or paralysis or loss of use of either side. Denies problems with gait or speech. Denies sensory loss, numbness, or tingling. Denies seizures. PSYCHIATRIC: Denies anxiety or stress. Denies depression, suicidal ideation, or homicidal ideation. ALL OTHER SYSTEMS REVIEWED AND NEGATIVE. PHYSICAL EXAMINATION: GENERAL: Well-appearing, well-nourished and in no acute distress. Hypertensive HEAD: Atraumatic, normocephalic. EYES: Pupils equal round and reactive to light, extraocular movements intact, conjunctiva are normal. ENT: Nares patent, oropharynx clear without exudates. Moist mucous membranes. NECK: Normal range of motion, supple without lymphadenopathy LUNGS: Breath sounds clear to auscultation bilaterally and equal. No wheezes rales or rhonchi. HEART: Regular rate and rhythm without murmurs ABDOMEN: Soft, nontender, nondistended abdomen. No guarding, no rebound. No masses appreciated. Female : deferred Musculoskeletal: Normal range of motion, no pitting or edema. No cyanosis. NEUROLOGICAL: Cranial nerves grossly intact. Normal speech, normal gait. Normal sensory, motor exams PSYCH: Normal mood, normal affect. SKIN: Warm, Dry, normal turgor, no rashes or lesions noted. Dictation was performed using [employer] voice recognition software Physical Exam - Vital signs Vitals: Temp Pulse Resp BP Pulse Ox 98.5 F 56 L 18 208/81 H 96 11/15/17 13:15 11/15/17 13:15 11/15/17 13:15 11/15/17 13:15 11/15/17 13:15 Course - Re-evaluation Re-evalutation: 11/15/17 14:34 Pt immediately igven hydralzine, bp improved from 206/81 to 189/71 11/15/17 16:04 I had spoken with Dr. Desir, given that the hydralazine did improve the patient's blood pressure 81 the patient be discharged home on oral hydralazine, unfortunately after the first dose the patient's blood pressure went up again so second dose was given, I did then contact Dr. Lamb quiet again who requests oral hydralazine be given since the last longer. The patient notes now when she stands she is feeling lightheaded dizzy. I will watch her in the emergency department for another hour or so and determine disposition at that time 11/15/17 17:31 pt contiinues to be hypertensive, spoke with PCP and will start cardene drip and admit - Vital Signs Vital signs: Temp Pulse Resp BP Pulse Ox 98.5 F 56 L 15 192/78 H 96 11/15/17 13:15 11/15/17 13:15 11/15/17 16:17 11/15/17 16:17 11/15/17 16:17 - Laboratory Result Diagrams: 11/15/17 13:36 11/15/17 13:36 Laboratory results interpreted by me: 11/15/17 11/15/17 13:36 13:36 WBC 12.6 H MCH 26.7 L RDW 17.8 H Plt Count 620 H Seg Neutrophils % 86.3 H Lymphocytes % 7.0 L Absolute Neutrophils 10.9 H Carbon Dioxide 35 H BUN 27 H Est GFR ( Amer) 54 L Est GFR (Non-Af Amer) 45 L Glucose 113 H AST 58 H ALT 57 H Alkaline Phosphatase 260 H - Diagnostic Test Radiology reviewed: Image reviewed, Reports reviewed - EKG Interpretation by Me EKG shows normal: Sinus rhythm, [place], Intervals, QRS Complexes Voltage: Consistant with LVH When compared to previous EKG there are: No significant change Critical Care Note - Critical Care Note Total time excluding time spent on procedures (mins): 58 Comments: 58 minutes of critical care time spent with patient treating hypertensive emergency, speaking with family and pcp . Pt to be admitted on icu Discharge - Discharge Clinical Impression: Hypertensive emergency without congestive heart failure Condition: Serious Disposition: ADMITTED INPATIENT Admitting Provider: Sweetie Unit Admitted: ICU Referrals: ERENDIRA DESIR MD [Primary Care Provider] - Follow up as needed
[2017-11-15] MEDS ORDERED: HYDRALAZINE HCL 50 MG TABLET PO ONE (15:43)
[2017-11-15] MEDS ORDERED: NICARDIPINE HCL RTU, ISO-OS 20 MG/200 ML RTUINJ IV PRN (17:31)
--- NOTE | 2017-11-15 19:01 | EKG REPORT ---
SEVERITY:- ABNORMAL ECG - SINUS RHYTHM FIRST DEGREE AV BLOCK PROBABLE LEFT ATRIAL ABNORMALITY PROBABLE LVH WITH SECONDARY REPOL ABNRM : Confirmed by: Caio Rebollar 15-Nov-2017 19:00:51
[2017-11-15] MEDS: CLONIDINE HCL 0.1 MG TABLET PO SCH (21:21)
[2017-11-15] MEDS: HYDRALAZINE HCL 50 MG TABLET PO SCH (21:21)
[2017-11-15] MEDS: ATORVASTATIN CALCIUM 10 MG TABLET PO SCH (21:21)
[2017-11-16] MEDS: HYDRALAZINE HCL 50 MG TABLET PO SCH ×3 (04:09→17:10)
[2017-11-16] MEDS: CLONIDINE HCL 0.1 MG TABLET PO SCH ×3 (06:41→21:16)
[2017-11-16] MEDS: LEVOTHYROXINE SODIUM 0.075 MG TABLET PO SCH (06:41)
[2017-11-16] MEDS: LANSOPRAZOLE 30 MG TAB.RAP.DR PO SCH (09:15)
[2017-11-16] MEDS: POTASSIUM CHLORIDE 10 MEQ TABLET.SA PO SCH (09:15)
[2017-11-16] MEDS: ASPIRIN 81 MG TABLET, ENT COATED PO SCH (09:15)
[2017-11-16] MEDS: IRON POLYSACCHARIDES COMPLEX 150 MG CAPSULE PO SCH (09:15)
[2017-11-16] MEDS: FUROSEMIDE 40 MG TABLET PO SCH ×2 (09:15→17:09)
[2017-11-16] MEDS: ENOXAPARIN SODIUM INJ 40 MG/0.4 ML DISP.SYRIN SUBCUT SCH (09:16)
[2017-11-16] MEDS ORDERED: POTASSIUM CHLORIDE 10 MEQ TABLET.SA PO SCH (10:00)
[2017-11-16] MEDS ORDERED: LEVOTHYROXINE SODIUM 0.075 MG TABLET PO SCH (10:00)
[2017-11-16] MEDS ORDERED: NON-FORMULARY UNIT-DOSE MEDICATION PO SCH (10:00)
[2017-11-16] MEDS ORDERED: ASPIRIN 81 MG TABLET, ENT COATED PO SCH (10:00)
[2017-11-16] MEDS ORDERED: LANSOPRAZOLE 30 MG TAB.RAP.DR PO SCH (10:00)
[2017-11-16] MEDS ORDERED: FUROSEMIDE 80 MG TABLET PO SCH (10:00)
[2017-11-16] MEDS ORDERED: CHOLECALCIFEROL (D3) 1,000 UNIT TABLET PO SCH (10:00)
[2017-11-16] MEDS ORDERED: NON-FORMULARY BULK MEDICATION PO SCH (10:00)
[2017-11-16] MEDS ORDERED: IRON POLYSACCHARIDES COMPLEX 150 MG CAPSULE PO SCH (10:00)
[2017-11-16] MEDS: ERGOCALCIFEROL (D2) 8,000 UNIT/ML SOLN 60 ML PO SCH (11:00)
--- NOTE | 2017-11-16 11:25 | PDOC H&P ---
History of Present Illness Admission Date/PCP: 11/15/17 17:43 [facility] Patient complains of: High blood pressure History of Present Illness: MIMI VALENTIN is a 87 year old female known to my practice who presented to the ED with reported elevated blood pressure ongoing for several days. She denied any associated chest pain or difficulty with her breathing. No leg swelling, PND or orthopnea. She has history of left renal artery stenosis as per her MRA completed at this facility on 10/10/2017 and schedule for surgical intervention by stent angioplasty procedure very soon. Her initial evaluation in the ED was remarkable for severely elevated blood pressure. She was treated with repeated doses IV Hydralazine without sustained improvement. She was subsequently in need for IV Cardene which was eventually cancelled due to her systolic blood pressure in downward trend after oral Hydralazine administration. She was advised admission to [facility] on observation status. Her morbidities include Diastolic Congestive Heart Failure, Coronary Artery Disease s/p stent angioplasty, Hypertension, Hypercholesterolemia, diet controlled Diabetes Mellitus Type 2, Hypothyroidism, Gastroesophageal Reflux Disease Osteoarthritis. Past Medical History Cardiac Medical History: Reports: Congestive Heart Failure - Diastolic, Coronary Artery Disease - Previous stent implant, Hyperlipidema, Hypertension Denies: DVT, Pulmonary Embolism Pulmonary Medical History: Denies: Asthma, Chronic Obstructive Pulmonary Disease (COPD), Sleep Apnea Neurological Medical History: Denies: Seizures Endocrine Medical History: Reports: Diabetes Mellitus Type 2 - Diet controlled, Hypothyroidism Denies: Diabetes Mellitus Type 1, Hyperthyroidism GI Medical History: Reports: Gastroesophageal Reflux Disease - Mild Denies: Cirrhosis, Hepatitis Musculoskeltal Medical History: Reports: Arthritis Psychiatric Medical History: Denies: Depression Infectious Medical History: Denies: Clostridium Difficile, Methicillin-Resistant Staph Aureus Past Surgical History Past Surgical History: Reports: Appendectomy, Cholecystectomy, Coronary Stent, Hysterectomy, Orthopedic Surgery - bilateral knee replacement; hip replacement, Other - Bilateral cataract surgery Social History Smoking Status: Never Smoker Frequency of Alcohol Use: None Hx Recreational Drug Use: No Drugs: None Hx Prescription Drug Abuse: No - Advance Directive Resuscitation Status: Full Code Family History Family History: Reviewed & Not Pertinent Parental Family History Reviewed: Yes Children Family History Reviewed: Yes Sibling(s) Family History Reviewed.: Yes Medication/Allergy Home Medications: Aspirin [Aspirin EC] 81 mg PO DAILY 11/15/17 Azilsartan Medoxomil [Edarbi] 80 mg PO DAILY 11/15/17 Clonidine HCl [Catapres 0.3 mg Tablet] 0.3 mg PO Q8 11/15/17 Ergocalciferol (Vitamin D2) [Vitamin D2] 2,000 unit PO DAILY 11/15/17 Furosemide [Lasix 40 mg Tablet] 40 mg PO BID 11/15/17 Iron Polysaccharide Complex [Ferrex 150] 150 mg PO DAILY 11/15/17 Levothyroxine Sodium [Synthroid 0.075 mg Tablet] 0.075 mg PO Q6AM 11/15/17 Omeprazole 40 mg PO DAILY 11/15/17 Potassium Chloride [Klor-Con 10 Meq Tablet.sa] 20 meq PO DAILY 11/15/17 Allergies/Adverse Reactions: No Known Allergies Allergy (Verified 11/15/17 14:30) Review of Systems Constitutional: ABSENT: chills, fever(s), headache(s), weight gain, weight loss Eyes: ABSENT: visual disturbances Ears: ABSENT: hearing changes Nose, Mouth, and Throat: ABSENT: as per HPI, headache(s), mouth pain, sore throat, vertigo, other Cardiovascular: ABSENT: chest pain, dyspnea on exertion, edema, orthropnea, palpitations Respiratory: ABSENT: cough, hemoptysis Gastrointestinal: ABSENT: abdominal pain, constipation, diarrhea, hematemesis, hematochezia, nausea, vomiting Genitourinary: ABSENT: dysuria, hematuria Musculoskeletal: ABSENT: joint swelling Integumentary: ABSENT: rash, wounds Neurological: ABSENT: abnormal gait, abnormal speech, confusion, dizziness, focal weakness, syncope Psychiatric: ABSENT: anxiety, depression, homidical ideation, suicidal ideation Endocrine: ABSENT: cold intolerance, heat intolerance, polydipsia, polyuria Hematologic/Lymphatic: ABSENT: easy bleeding, easy bruising, lymphadenopathy Allergic/Immunologic: ABSENT: seasonal rhinorrhea Physical Exam Vital Signs: Temp Pulse Resp BP Pulse Ox 98.2 F 49 L 16 141/52 H 96 11/16/17 07:59 11/16/17 07:59 11/16/17 07:59 11/16/17 07:59 11/16/17 07:59 Intake & Output 11/15/17 11/16/17 11/17/17 06:59 06:59 06:59 Intake Total 10 Balance 10 Weight 78.6 kg General appearance: PRESENT: no acute distress, well-developed, well-nourished Head exam: PRESENT: atraumatic, normocephalic Eye exam: PRESENT: conjunctiva pink, EOMI, PERRLA. ABSENT: scleral icterus Mouth exam: PRESENT: moist Neck exam: PRESENT: full ROM. ABSENT: carotid bruit, JVD, lymphadenopathy, thyromegaly Respiratory exam: PRESENT: clear to auscultation solitario Cardiovascular exam: PRESENT: RRR. ABSENT: diastolic murmur, rubs, systolic murmur Vascular exam: PRESENT: normal capillary refill. ABSENT: pallor GI/Abdominal exam: PRESENT: normal bowel sounds, soft. ABSENT: distended, guarding, mass, organolmegaly, rebound, tenderness Rectal exam: PRESENT: deferred Extremities exam: ABSENT: pedal edema Musculoskeletal exam: PRESENT: deformity - related to multiple joint involvement witharthritis Neurological exam: PRESENT: alert, awake, oriented to person, oriented to place , oriented to time, oriented to situation, CN II-XII grossly intact. ABSENT: motor sensory deficit Psychiatric exam: PRESENT: appropriate affect, normal mood. ABSENT: homicidal ideation, suicidal ideation Skin exam: PRESENT: dry, intact, warm. ABSENT: cyanosis, rash Results Laboratory Results: I reviewed her ab results on [employer] and form significant part of my medical decision making. Assessment & Plan - Diagnosis (1) Hypertensive emergency without congestive heart failure Is this a current diagnosis for this admission?: Yes Plan: See admitting attending physician orders. (2) Left renal artery stenosis Is this a current diagnosis for this admission?: Yes Plan: See admitting attending physician orders. (3) Diastolic CHF Qualifiers: Qualified Code(s): I50.32 - Chronic diastolic (congestive) heart failure Is this a current diagnosis for this admission?: Yes Plan: See admitting attending physician orders. (4) CAD (coronary artery disease) Qualifiers: Coronary Disease-Associated Artery/Lesion type: [place] artery [place] vs. transplanted heart: [place] heart Associated angina: angina presence unspecified Qualified Code(s): I25.10 - Atherosclerotic heart disease of [place] coronary artery without angina pectoris Is this a current diagnosis for this admission?: Yes Plan: See admitting attending physician orders. (5) Diabetes mellitus type 2 in obese Is this a current diagnosis for this admission?: Yes Plan: See admitting attending physician orders. (6) Elevated LFTs Is this a current diagnosis for this admission?: Yes Plan: See admitting attending physician orders. (7) Hypothyroid Qualifiers: Hypothyroidism type: unspecified Qualified Code(s): E03.9 - Hypothyroidism , unspecified Is this a current diagnosis for this admission?: Yes Plan: See admitting attending physician orders. - Time Time Spent: 50 to 70 Minutes Medications reviewed and adjusted accordingly: Yes Anticipated discharge: Home with Homehealth Within: within 48 hours - Inpatient Certification Post Hospital Care: D/C Track Welder Documentation - Plan Summary Plan Summary: See admitting attending physician orders.
[2017-11-16 13:24] LABS: CREATINE KINASE MB 0.76 ng/mL (<4.55); TROPONIN I 0.061 ng/mL
[2017-11-16 20:24] LABS: AMORPHOUS SEDIMENT,URINE TRACE /HPF; APPEARANCE,URINE CLOUDY; BILIRUBIN,URINE NEGATIVE (NEGATIVE); COLOR,URINE YELLOW; GLUCOSE, URINE NEGATIVE (NEGATIVE); KETONES,URINE NEGATIVE (NEGATIVE); LEUKOCYTE ESTERASE,URINE LARGE (NEGATIVE); NITRITE,URINE NEGATIVE (NEGATIVE); PROTEIN,URINE >=500 mg/dL (NEGATIVE); URINE SPECIFIC GRAVITY 1.014; UROBILINOGEN,URINE NEGATIVE mg/dL (<2.0)
[2017-11-16] MEDS: ATORVASTATIN CALCIUM 10 MG TABLET PO SCH (21:16)
[2017-11-17] MEDS: HYDRALAZINE HCL 50 MG TABLET PO SCH ×3 (02:11→19:19)
[2017-11-17] MEDS: LEVOTHYROXINE SODIUM 0.075 MG TABLET PO SCH (05:34)
[2017-11-17] MEDS: CLONIDINE HCL 0.1 MG TABLET PO SCH ×3 (05:34→22:47)
[2017-11-17] MEDS ORDERED: (PENDING PHARMACY ID) (Azilsartan Medoxomil [Edarbi] 80 MG) PO SCH (10:00)
[2017-11-17] MEDS: LANSOPRAZOLE 30 MG TAB.RAP.DR PO SCH (11:01)
[2017-11-17] MEDS: ASPIRIN 81 MG TABLET, ENT COATED PO SCH (11:02)
[2017-11-17] MEDS: POTASSIUM CHLORIDE 10 MEQ TABLET.SA PO SCH (11:03)
[2017-11-17] MEDS: FUROSEMIDE 40 MG TABLET PO SCH ×2 (11:03→19:19)
[2017-11-17] MEDS: IRON POLYSACCHARIDES COMPLEX 150 MG CAPSULE PO SCH (11:04)
[2017-11-17] MEDS: ENOXAPARIN SODIUM INJ 40 MG/0.4 ML DISP.SYRIN SUBCUT SCH (11:05)
[2017-11-17] MEDS: AZILSARTAN MEDOXOMIL 80 MG PO SCH (11:07)
[2017-11-17] MEDS: ERGOCALCIFEROL (D2) 8,000 UNIT/ML SOLN 60 ML PO SCH (11:14)
[2017-11-17] MEDS ORDERED: CEFTRIAXONE 1 GM/D5W RTU 1 GM/50 ML RTUPB IV SCH (13:00)
--- NOTE | 2017-11-17 14:26 | PDOC PROGRESS REPORT ---
Subjective Progress Note for:: 11/17/17 Subjective:: Patient denied chest pain, palpitation, or difficulty with breathing. No nausea , vomiting or abdominal pain. Blood pressure remain somewhat elevated but comparatively improving. No headache or dizziness. No focal weakness. Reason For Visit: HYPERTENSIVE CRISIS WITHOUT CONGESTIVE HEART Physical Exam Vital Signs: Temp Pulse Resp BP Pulse Ox 97.8 F 52 L 16 196/73 H 96 11/17/17 12:16 11/17/17 12:16 11/17/17 12:16 11/17/17 12:16 11/17/17 12:16 Intake & Output 11/16/17 11/17/17 11/18/17 06:59 06:59 06:59 Intake Total 10 1263 Output Total 200 Balance 10 1063 Weight 78.6 kg General appearance: PRESENT: no acute distress Head exam: PRESENT: atraumatic, normocephalic Eye exam: PRESENT: conjunctiva pink, EOMI, PERRLA. ABSENT: scleral icterus Mouth exam: PRESENT: moist Respiratory exam: PRESENT: clear to auscultation solitario Cardiovascular exam: PRESENT: bradycardia, RRR. ABSENT: diastolic murmur, rubs , systolic murmur Vascular exam: PRESENT: normal capillary refill. ABSENT: pallor GI/Abdominal exam: PRESENT: normal bowel sounds, soft. ABSENT: distended, guarding, mass, organolmegaly, rebound, tenderness Extremities exam: ABSENT: pedal edema Musculoskeletal exam: PRESENT: deformity - related to multiple joints involvement with arthritis Neurological exam: PRESENT: alert, awake, oriented to person, oriented to place , oriented to time, oriented to situation, CN II-XII grossly intact. ABSENT: motor sensory deficit Psychiatric exam: PRESENT: appropriate affect, normal mood. ABSENT: homicidal ideation, suicidal ideation Skin exam: PRESENT: dry, intact, warm. ABSENT: cyanosis, rash Results Laboratory Results: 11/16/17 19:55 Urine Color YELLOW Urine Appearance CLOUDY Urine pH 5.0 Ur Specific [place] 1.014 Urine Protein >=500 H Urine Glucose (UA) NEGATIVE Urine Ketones NEGATIVE Urine Blood NEGATIVE Urine Nitrite NEGATIVE Ur Leukocyte Esterase LARGE H Urine WBC (Auto) 89 Urine RBC (Auto) 6 11/16/17 11/16/17 12:16 12:16 Creatine Kinase 47 CK-MB (CK-2) 0.76 Troponin I 0.061 Assessment & Plan - Diagnosis (1) Hypertensive emergency without congestive heart failure Is this a current diagnosis for this admission?: Yes (2) Left renal artery stenosis Is this a current diagnosis for this admission?: Yes (3) Diastolic CHF Qualifiers: Qualified Code(s): I50.32 - Chronic diastolic (congestive) heart failure Is this a current diagnosis for this admission?: Yes (4) CAD (coronary artery disease) Qualifiers: Coronary Disease-Associated Artery/Lesion type: [place] artery [place] vs. transplanted heart: [place] heart Associated angina: angina presence unspecified Qualified Code(s): I25.10 - Atherosclerotic heart disease of [place] coronary artery without angina pectoris Is this a current diagnosis for this admission?: Yes (5) Diabetes mellitus type 2 in obese Is this a current diagnosis for this admission?: Yes (6) Elevated LFTs Is this a current diagnosis for this admission?: Yes (7) Hypothyroid Qualifiers: Hypothyroidism type: unspecified Qualified Code(s): E03.9 - Hypothyroidism , unspecified Is this a current diagnosis for this admission?: Yes - Time Time Spent with patient: 25-34 minutes Medications reviewed and adjusted accordingly: Yes Anticipated discharge: Home Within: within 24 hours - Plan Summary Plan Summary: Start on IV Rocephin coverage. Obtain TSH, FT3, and FT4 and urine culture. Follow up on pending labs.
[2017-11-17 14:52] LABS: ABSOLUTE BASOPHILS # (AUTO) 0.1 10^3/uL (0.0-0.2); ABSOLUTE EOSINOPHILS # (AUTO) 0.4 10^3/uL (0.0-0.6); ABSOLUTE LYMPHOCYTES (AUTO) 2.1 10^3/uL (0.5-4.7); ABSOLUTE MONOCYTES (AUTO) 0.7 10^3/uL (0.1-1.4); ABSOLUTE NEUT (AUTO) 11.9 10^3/uL (1.7-8.2); BASOPHILS % (AUTO) 0.8 % (0-2); EOSINOPHILS % (AUTO) 2.6 % (0-6); HEMOGLOBIN 14.2 g/dL (12.0-15.5); LYMPHOCYTES % (AUTO) 13.8 % (13-45); MEAN CORPUSCULAR HEMOGLOBIN 26.5 pg (27.0-33.4); MEAN CORPUSCULAR HGB CONC 32.9 g/dL (32.0-36.0); MEAN CORPUSCULAR VOLUME 80 fl (80-97); MONOCYTES % (AUTO) 4.4 % (3-13); PLATELET COUNT 626 10^3/uL (150-450); RED BLOOD COUNT 5.35 10^6/uL (3.72-5.28); RED CELL DISTRIBUTION WIDTH 18.2 % (11.5-14.0); SEGMENTED NEUTROPHILS % (AUTO) 78.4 % (42-78); TOTAL CELLS COUNTED % (AUTO) 100 %; WHITE BLOOD COUNT 15.2 10^3/uL (4.0-10.5)
[2017-11-17 15:23] LABS: ALANINE AMINOTRANSFERASE 44 U/L (9-52); ALBUMIN 3.7 g/dL (3.5-5.0); ALKALINE PHOSPHATASE 238 U/L (38-126); ANION GAP 8 (5-19); ASPARTATE AMINO TRANSFERASE 39 U/L (14-36); BILIRUBIN,DIRECT 0.3 mg/dL (0.0-0.4); BILIRUBIN,TOTAL 0.3 mg/dL (0.2-1.3); BLOOD UREA NITROGEN 32 mg/dL (7-20); CALCIUM 9.7 mg/dL (8.4-10.2); CARBON DIOXIDE 35 mmol/L (22-30); CHLORIDE 99 mmol/L (98-107); GLUCOSE 109 mg/dL (75-110); POTASSIUM 4.8 mmol/L (3.6-5.0); SODIUM 141.5 mmol/L (137-145); TOTAL PROTEIN 6.3 g/dL (6.3-8.2)
[2017-11-17] MEDS: CEFTRIAXONE SODIUM 1,000 MG in NORMAL SALINE 100 ML IV SCH (16:28)
[2017-11-17] MEDS: ATORVASTATIN CALCIUM 10 MG TABLET PO SCH (22:43)
[2017-11-18] MEDS: HYDRALAZINE HCL 50 MG TABLET PO SCH ×4 (01:41→23:08)
[2017-11-18] MEDS: CLONIDINE HCL 0.1 MG TABLET PO SCH ×3 (06:19→23:55)
[2017-11-18] MEDS: LEVOTHYROXINE SODIUM 0.075 MG TABLET PO SCH (06:20)
--- NOTE | 2017-11-18 08:09 | Physician Advisory Note ---
Physician Advisor ProgressNote .: Pursuant to the plan for [facility], I have reviewed the medical record for this patient. Physician Advisor Statement: Nice documentation of chronic diastolic CHF. Please consider documenting, if you agree: 1. "REX/ARF, likely due to ; baseline Cr = ____" (HTN-yesika emergency? Baseline Cr appears to be about 0.8 from previous levels here.) 2. "Hypertensive Emergency, evidenced by " [REX? other organ failure/ dysfunction, such as angina or cardiac demand ischemia?] 3. Dx/infxn for which Rocephin is given 4. Medical necessity: please spell out reasons each day that pt not safe for d /c. Status: Pt appropriately came in as Obs for severe HTN. Also had leukocytosis , & (+)U/A. Leukocytosis worsening on 11/17. Renal function worse than baseline & worsening further since arrival. Also, trop I level went up from 0.017 to 0.061. Appropriate to change to Inpatient status. Thanks! CK Reference: - "Hypertensive Urgency" requires urgent tx & BP's systolic >180 or diastolic >120. No associated sx or end-organ failure/dysfunction. - "Hypertensive Emergency" requires urgent tx & BP's systolic >180 or diastolic >120, AND (+) resultant symptoms &/or end-organ effects. - "Hypertensive Crisis" = umbrella term including both of the above 2 dx.s, likely to be phased out from coding manuals in future given the push for specificity.
[2017-11-18] MEDS: LANSOPRAZOLE 30 MG TAB.RAP.DR PO SCH (11:00)
[2017-11-18] MEDS: CHOLECALCIFEROL (D3) 1,000 UNIT TABLET PO SCH (11:01)
[2017-11-18] MEDS: IRON POLYSACCHARIDES COMPLEX 150 MG CAPSULE PO SCH (11:03)
[2017-11-18] MEDS: POTASSIUM CHLORIDE 10 MEQ TABLET.SA PO SCH (11:03)
[2017-11-18] MEDS: FUROSEMIDE 40 MG TABLET PO SCH ×2 (11:07→18:47)
[2017-11-18] MEDS: ASPIRIN 81 MG TABLET, ENT COATED PO SCH (11:09)
[2017-11-18] MEDS: ENOXAPARIN SODIUM INJ 40 MG/0.4 ML DISP.SYRIN SUBCUT SCH (11:10)
[2017-11-18] MEDS: AZILSARTAN MEDOXOMIL 80 MG PO SCH (11:11)
[2017-11-18] MEDS: CEFTRIAXONE SODIUM 1,000 MG in NORMAL SALINE 100 ML IV SCH (14:14)
--- NOTE | 2017-11-18 19:38 | PDOC PROGRESS REPORT ---
Subjective Progress Note for:: 11/18/17 Subjective:: Patient denied any chest pain or difficulty with breathing. No nausea, vomiting or abdominal pain. Continue to demonstrate elevated blood pressure. She denied headache or dizziness. OOB in chair most of the day. Reason For Visit: HYPERTENSIVE CRISIS WITHOUT CONGESTIVE HEART Physical Exam Vital Signs: Temp Pulse Resp BP Pulse Ox 98.1 F 58 L 20 187/72 H 99 11/18/17 16:49 11/18/17 16:49 11/18/17 16:49 11/18/17 16:49 11/18/17 16:49 Intake & Output 11/17/17 11/18/17 11/19/17 06:59 06:59 06:59 Intake Total 1263 891 795 Output Total 200 200 200 Balance 1063 691 595 Weight 79.9 kg Physical Exam: General appearance: PRESENT: no acute distress Head exam: PRESENT: atraumatic, normocephalic Eye exam: PRESENT: conjunctiva pink, EOMI, PERRLA. ABSENT: scleral icterus Mouth exam: PRESENT: moist Respiratory exam: PRESENT: clear to auscultation solitario Cardiovascular exam: PRESENT: bradycardia, RRR. ABSENT: diastolic murmur, rubs , systolic murmur GI/Abdominal exam: PRESENT: normal bowel sounds, soft. ABSENT: distended, guarding, mass, organomegaly, rebound, tenderness Extremities exam: ABSENT: pedal edema Musculoskeletal exam: PRESENT: deformity - related to multiple joints involvement with arthritis Neurological exam: PRESENT: alert, awake, oriented to person, oriented to place , oriented to time, oriented to situation, CN II-XII grossly intact. ABSENT: motor sensory deficit Psychiatric exam: PRESENT: appropriate affect, normal mood. ABSENT: homicidal ideation, suicidal ideation Skin exam: PRESENT: dry, intact, warm. ABSENT: cyanosis, rash Results Laboratory Results: 11/17/17 14:06 11/17/17 14:06 11/16/17 11/16/17 12:16 12:16 Creatine Kinase 47 CK-MB (CK-2) 0.76 Troponin I 0.061 Assessment & Plan - Diagnosis (1) Hypertensive emergency without congestive heart failure Is this a current diagnosis for this admission?: Yes Plan: Continue current medication management with increase of Hydralazine to 100 mg po q 8 hours. (2) Left renal artery stenosis Is this a current diagnosis for this admission?: Yes (3) Diastolic CHF Qualifiers: Qualified Code(s): I50.32 - Chronic diastolic (congestive) heart failure Is this a current diagnosis for this admission?: Yes (4) CAD (coronary artery disease) Qualifiers: Coronary Disease-Associated Artery/Lesion type: [place] artery [place] vs. transplanted heart: [place] heart Associated angina: angina presence unspecified Qualified Code(s): I25.10 - Atherosclerotic heart disease of [place] coronary artery without angina pectoris Is this a current diagnosis for this admission?: Yes (5) Diabetes mellitus type 2 in obese Is this a current diagnosis for this admission?: Yes (6) Elevated LFTs Is this a current diagnosis for this admission?: Yes (7) Hypothyroid Qualifiers: Hypothyroidism type: unspecified Qualified Code(s): E03.9 - Hypothyroidism , unspecified Is this a current diagnosis for this admission?: Yes (8) Gram-negative bacterial infection Is this a current diagnosis for this admission?: Yes Plan: Continue IV Rocephin for UTI management. Follow up on urine culture with organism identification and sensitivity findings. (9) REX (acute kidney injury) Is this a current diagnosis for this admission?: Yes Plan: Probably due to elevated blood pressure and diuretic therapy. If blood pressure response to Hydralazine is satisfactory, I will consider decrease of Lasix to daily. - Time Time Spent with patient: 25-34 minutes Medications reviewed and adjusted accordingly: Yes Anticipated discharge: Home Within: Other - Inpatient Certification Based on my medical assessment, after consideration of the patient's comorbidities, presenting symptoms, or acuity I expect that the services needed warrant INPATIENT care.: Yes I certify that my determination is in accordance with my understanding of Medicare's requirements for reasonable and necessary INPATIENT services [42 CFR 412.3e].: Yes Medical Necessity: Need Close Monitoring Due to Risk of Patient Decompensation, Need For Continuous Telemetry Monitoring, Need for IV Antibiotics, Risk of Complication if Not Cared For in Hospital 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 She will continue on IV Rocephin for gram negative UTI management pending organism identification and sensitivity findings. Her renal indices and leukocytosis show worsening trend and blood pressure remain elevated although she continue to denied any cardiac symptoms her renal indices are indicative of possible organ dysfunction. I will change her admission status to full inpatient. Obtain CBC with diff and BMP in am.
[2017-11-18] MEDS: ATORVASTATIN CALCIUM 10 MG TABLET PO SCH (23:09)
[2017-11-19] MEDS: CLONIDINE HCL 0.1 MG TABLET PO SCH ×3 (06:23→20:18)
[2017-11-19] MEDS: HYDRALAZINE HCL 50 MG TABLET PO SCH ×3 (06:23→20:16)
[2017-11-19] MEDS: LEVOTHYROXINE SODIUM 0.075 MG TABLET PO SCH (06:23)
[2017-11-19 07:32] LABS: ABSOLUTE BASOPHILS # (AUTO) 0.1 10^3/uL (0.0-0.2); ABSOLUTE EOSINOPHILS # (AUTO) 0.4 10^3/uL (0.0-0.6); ABSOLUTE LYMPHOCYTES (AUTO) 2.4 10^3/uL (0.5-4.7); ABSOLUTE MONOCYTES (AUTO) 0.9 10^3/uL (0.1-1.4); ABSOLUTE NEUT (AUTO) 12.9 10^3/uL (1.7-8.2); BASOPHILS % (AUTO) 0.8 % (0-2); EOSINOPHILS % (AUTO) 2.4 % (0-6); HEMATOCRIT 42.3 % (36.0-47.0); HEMOGLOBIN 14.1 g/dL (12.0-15.5); LYMPHOCYTES % (AUTO) 14.5 % (13-45); MEAN CORPUSCULAR HEMOGLOBIN 26.5 pg (27.0-33.4); MEAN CORPUSCULAR HGB CONC 33.4 g/dL (32.0-36.0); MEAN CORPUSCULAR VOLUME 80 fl (80-97); MONOCYTES % (AUTO) 5.1 % (3-13); PLATELET COUNT 626 10^3/uL (150-450); RED BLOOD COUNT 5.32 10^6/uL (3.72-5.28); RED CELL DISTRIBUTION WIDTH 18.2 % (11.5-14.0); SEGMENTED NEUTROPHILS % (AUTO) 77.2 % (42-78); TOTAL CELLS COUNTED % (AUTO) 100 %; WHITE BLOOD COUNT 16.8 10^3/uL (4.0-10.5)
[2017-11-19 07:45] LABS: ANION GAP 9 (5-19); BLOOD UREA NITROGEN 35 mg/dL (7-20); CALCIUM 9.6 mg/dL (8.4-10.2); CARBON DIOXIDE 32 mmol/L (22-30); CHLORIDE 100 mmol/L (98-107); GLUCOSE 135 mg/dL (75-110); POTASSIUM 4.7 mmol/L (3.6-5.0); SODIUM 141.4 mmol/L (137-145)
[2017-11-19] MEDS ORDERED: NITROGLYCERIN 0.4 MG/TAB 25 TAB/BOTTLE ONE (09:05)
[2017-11-19] MEDS: POTASSIUM CHLORIDE 10 MEQ TABLET.SA PO SCH (09:46)
[2017-11-19] MEDS: ASPIRIN 81 MG TABLET, ENT COATED PO SCH (09:46)
[2017-11-19] MEDS: FUROSEMIDE 40 MG TABLET PO SCH ×2 (09:47→17:44)
[2017-11-19] MEDS: LANSOPRAZOLE 30 MG TAB.RAP.DR PO SCH (09:47)
[2017-11-19] MEDS: IRON POLYSACCHARIDES COMPLEX 150 MG CAPSULE PO SCH (09:47)
[2017-11-19] MEDS: ENOXAPARIN SODIUM INJ 40 MG/0.4 ML DISP.SYRIN SUBCUT SCH (09:47)
[2017-11-19] MEDS: CHOLECALCIFEROL (D3) 1,000 UNIT TABLET PO SCH (09:47)
[2017-11-19] MEDS: AZILSARTAN MEDOXOMIL 80 MG PO SCH (09:49)
[2017-11-19 10:44] LABS: CREATINE KINASE MB 0.89 ng/mL (<4.55); TROPONIN I 0.02 ng/mL
--- NOTE | 2017-11-19 14:00 | EKG REPORT ---
SEVERITY:- ABNORMAL ECG - SINUS RHYTHM MULTIPLE VENTRICULAR PREMATURE COMPLEXES PROBABLE LEFT ATRIAL ABNORMALITY LVH WITH SECONDARY REPOLARIZATION ABNORMALITY : Confirmed by: John Coppola MD 19-Nov-2017 13:59:33
[2017-11-19] MEDS: CEFTRIAXONE SODIUM 1,000 MG in NORMAL SALINE 100 ML IV SCH (16:15)
--- NOTE | 2017-11-19 19:24 | PDOC PROGRESS REPORT ---
Subjective Progress Note for:: 11/19/17 Subjective:: Patient had episode of left sided chest pain with dyspnea and severely elevated blood pressure. Her symptoms resolved with administration of SL nitroglycerin. Blood pressure was down to 149/71 mmHg. No nausea, vomiting or abdominal pain. She denied headache or dizziness. Blood culture grew Enterobacter Cloacae > 100, 000 col/mL. Reason For Visit: HYPERTENSIVE CRISIS WITHOUT CONGESTIVE HEART Physical Exam Vital Signs: Temp Pulse Resp BP Pulse Ox 97.5 F 73 16 149/71 H 98 11/19/17 16:12 11/19/17 16:12 11/19/17 10:42 11/19/17 16:12 11/19/17 16:12 Intake & Output 11/18/17 11/19/17 11/20/17 06:59 06:59 06:59 Intake Total 250 709 Output Total 250 450 Balance 0 259 Weight 79.8 kg Physical Exam: General appearance: PRESENT: no acute distress Head exam: PRESENT: atraumatic, normocephalic Eye exam: PRESENT: conjunctiva pink, EOMI, PERRLA. ABSENT: scleral icterus Mouth exam: PRESENT: moist Respiratory exam: PRESENT: clear to auscultation solitario Cardiovascular exam: PRESENT: RRR. ABSENT: diastolic murmur, rubs, systolic murmur GI/Abdominal exam: PRESENT: normal bowel sounds, soft. ABSENT: distended, guarding, mass, organomegaly, rebound, tenderness Extremities exam: ABSENT: pedal edema Musculoskeletal exam: PRESENT: deformity - related to multiple joints involvement with arthritis Neurological exam: PRESENT: alert, awake, oriented to person, oriented to place , oriented to time, oriented to situation, CN II-XII grossly intact. ABSENT: motor sensory deficit Psychiatric exam: PRESENT: appropriate affect, normal mood. ABSENT: homicidal ideation, suicidal ideation Skin exam: PRESENT: dry, intact, warm. ABSENT: cyanosis, rash Results Laboratory Results: 11/19/17 07:06 11/19/17 07:06 11/19/17 11/19/17 07:06 07:06 WBC 16.8 H RBC 5.32 H Hgb 14.1 Hct 42.3 MCV 80 MCH 26.5 L MCHC 33.4 RDW 18.2 H Plt Count 626 H Seg Neutrophils % 77.2 Lymphocytes % 14.5 Monocytes % 5.1 Eosinophils % 2.4 Basophils % 0.8 Absolute Neutrophils 12.9 H Absolute Lymphocytes 2.4 Absolute Monocytes 0.9 Absolute Eosinophils 0.4 Absolute Basophils 0.1 Sodium 141.4 Potassium 4.7 Chloride 100 Carbon Dioxide 32 H Anion Gap 9 BUN 35 H Creatinine 1.31 H Est GFR ( Amer) 46 L Est GFR (Non-Af Amer) 38 L Glucose 135 H Calcium 9.6 11/19/17 11/19/17 09:45 09:45 Creatine Kinase 42 CK-MB (CK-2) 0.89 Troponin I 0.020 Assessment & Plan - Diagnosis (1) Hypertensive emergency without congestive heart failure Is this a current diagnosis for this admission?: Yes (2) Left renal artery stenosis Is this a current diagnosis for this admission?: Yes (3) Diastolic CHF Qualifiers: Qualified Code(s): I50.32 - Chronic diastolic (congestive) heart failure Is this a current diagnosis for this admission?: Yes (4) CAD (coronary artery disease) Qualifiers: Coronary Disease-Associated Artery/Lesion type: [place] artery [place] vs. transplanted heart: [place] heart Associated angina: angina presence unspecified Qualified Code(s): I25.10 - Atherosclerotic heart disease of [place] coronary artery without angina pectoris Is this a current diagnosis for this admission?: Yes (5) Diabetes mellitus type 2 in obese Is this a current diagnosis for this admission?: Yes (6) Elevated LFTs Is this a current diagnosis for this admission?: Yes (7) Hypothyroid Qualifiers: Hypothyroidism type: unspecified Qualified Code(s): E03.9 - Hypothyroidism , unspecified Is this a current diagnosis for this admission?: Yes (8) REX (acute kidney injury) Is this a current diagnosis for this admission?: Yes (9) Infection due to Enterobacter cloacae Is this a current diagnosis for this admission?: Yes Plan: Continue IV Rocephin coverage. Consider transition to oral route if leukocytosis resolve and remain afebrile. - Time Time Spent with patient: 25-34 minutes Medications reviewed and adjusted accordingly: Yes Anticipated discharge: Home with Homehealth Within: Other - Inpatient Certification Based on my medical assessment, after consideration of the patient's comorbidities, presenting symptoms, or acuity I expect that the services needed warrant INPATIENT care.: Yes I certify that my determination is in accordance with my understanding of Medicare's requirements for reasonable and necessary INPATIENT services [42 CFR 412.3e].: Yes Medical Necessity: Need Close Monitoring Due to Risk of Patient Decompensation, Need For Continuous Telemetry Monitoring, Need for IV Antibiotics, Risk of Complication if Not Cared For in Hospital 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 Start on Isosorbide Dinitrate 20 mg po q8 hours. Obtain CBC with Diff, BMP in AM.
[2017-11-19] MEDS: ISOSORBIDE DINITRATE 20 MG TABLET PO SCH (20:20)
[2017-11-19] MEDS: ATORVASTATIN CALCIUM 10 MG TABLET PO SCH (20:21)
[2017-11-20] MEDS: ISOSORBIDE DINITRATE 20 MG TABLET PO SCH ×3 (06:30→22:33)
[2017-11-20] MEDS: LEVOTHYROXINE SODIUM 0.075 MG TABLET PO SCH (06:31)
[2017-11-20] MEDS: HYDRALAZINE HCL 50 MG TABLET PO SCH ×3 (06:31→22:30)
[2017-11-20] MEDS: CLONIDINE HCL 0.1 MG TABLET PO SCH ×3 (06:32→22:31)
[2017-11-20 06:41] LABS: ABSOLUTE BASOPHILS # (AUTO) 0.1 10^3/uL (0.0-0.2); ABSOLUTE EOSINOPHILS # (AUTO) 0.3 10^3/uL (0.0-0.6); ABSOLUTE LYMPHOCYTES (AUTO) 1.7 10^3/uL (0.5-4.7); ABSOLUTE MONOCYTES (AUTO) 0.9 10^3/uL (0.1-1.4); BASOPHILS % (AUTO) 0.8 % (0-2); HEMATOCRIT 38.2 % (36.0-47.0); HEMOGLOBIN 12.4 g/dL (12.0-15.5); LYMPHOCYTES % (AUTO) 10.4 % (13-45); MEAN CORPUSCULAR HGB CONC 32.6 g/dL (32.0-36.0); MEAN CORPUSCULAR VOLUME 80 fl (80-97); MONOCYTES % (AUTO) 5.3 % (3-13); PLATELET COUNT 595 10^3/uL (150-450); RED BLOOD COUNT 4.78 10^6/uL (3.72-5.28); RED CELL DISTRIBUTION WIDTH 18.3 % (11.5-14.0); SEGMENTED NEUTROPHILS % (AUTO) 81.5 % (42-78); TOTAL CELLS COUNTED % (AUTO) 100 %
[2017-11-20 07:06] LABS: ANION GAP 10 (5-19); BLOOD UREA NITROGEN 48 mg/dL (7-20); CALCIUM 9.1 mg/dL (8.4-10.2); CARBON DIOXIDE 33 mmol/L (22-30); CHLORIDE 99 mmol/L (98-107); GLUCOSE 125 mg/dL (75-110); POTASSIUM 4.6 mmol/L (3.6-5.0); SODIUM 142.3 mmol/L (137-145)
[2017-11-20] MEDS: POTASSIUM CHLORIDE 10 MEQ TABLET.SA PO SCH (11:06)
[2017-11-20] MEDS: CHOLECALCIFEROL (D3) 1,000 UNIT TABLET PO SCH (11:06)
[2017-11-20] MEDS: ASPIRIN 81 MG TABLET, ENT COATED PO SCH (11:06)
[2017-11-20] MEDS: LANSOPRAZOLE 30 MG TAB.RAP.DR PO SCH (11:07)
[2017-11-20] MEDS: FUROSEMIDE 40 MG TABLET PO SCH ×2 (11:07→17:31)
[2017-11-20] MEDS: IRON POLYSACCHARIDES COMPLEX 150 MG CAPSULE PO SCH (11:07)
[2017-11-20] MEDS: ENOXAPARIN SODIUM INJ 40 MG/0.4 ML DISP.SYRIN SUBCUT SCH (11:08)
[2017-11-20] MEDS: AZILSARTAN MEDOXOMIL 80 MG PO SCH (11:09)
[2017-11-20] MEDS: CEFTRIAXONE SODIUM 1,000 MG in NORMAL SALINE 100 ML IV SCH (15:39)
--- NOTE | 2017-11-20 15:50 | Physician Advisory Note ---
Physician Advisor ProgressNote .: Pursuant to the plan for [facility], I have reviewed the medical record for this patient. Physician Advisor Statement: Please be sure to document what kind of infection pt has with E. 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 Thanks! CK
[2017-11-20] MEDS ORDERED: LEVOFLOXACIN 250 MG TABLET PO ONE (18:12)
--- NOTE | 2017-11-20 18:16 | PDOC PROGRESS REPORT ---
Subjective Progress Note for:: 11/20/17 Subjective:: Patient denied any chest pain or difficulty with her breathing. No nausea, vomiting or abdominal pain. No headache or dizziness. Reason For Visit: HYPERTENSIVE CRISIS WITHOUT CONGESTIVE HEART Physical Exam Vital Signs: Temp Pulse Resp BP Pulse Ox 97.3 F 72 16 151/61 H 98 11/20/17 12:09 11/20/17 14:00 11/20/17 12:09 11/20/17 12:09 11/20/17 12:09 Intake & Output 11/19/17 11/20/17 11/21/17 06:59 06:59 06:59 Intake Total 250 1199 Output Total 250 450 Balance 0 749 Weight 79.8 kg 79.3 kg Physical Exam: General appearance: PRESENT: no acute distress Head exam: PRESENT: atraumatic, normocephalic Eye exam: PRESENT: conjunctiva pink, EOMI, PERRLA. ABSENT: scleral icterus Mouth exam: PRESENT: moist Respiratory exam: PRESENT: clear to auscultation solitario Cardiovascular exam: PRESENT: RRR. ABSENT: diastolic murmur, rubs, systolic murmur GI/Abdominal exam: PRESENT: normal bowel sounds, soft. ABSENT: distended, guarding, mass, organomegaly, rebound, tenderness Extremities exam: ABSENT: pedal edema Musculoskeletal exam: PRESENT: deformity - related to multiple joints involvement with arthritis Neurological exam: PRESENT: alert, awake, oriented to person, oriented to place , oriented to time, oriented to situation, CN II-XII grossly intact. ABSENT: motor sensory deficit Psychiatric exam: PRESENT: appropriate affect, normal mood. ABSENT: homicidal ideation, suicidal ideation Skin exam: PRESENT: dry, intact, warm. ABSENT: cyanosis, rash Results Laboratory Results: 11/20/17 06:11 11/20/17 06:11 11/20/17 11/20/17 06:11 06:11 WBC 16.0 H RBC 4.78 Hgb 12.4 Hct 38.2 MCV 80 MCH 26.0 L MCHC 32.6 RDW 18.3 H Plt Count 595 H Seg Neutrophils % 81.5 H Lymphocytes % 10.4 L Monocytes % 5.3 Eosinophils % 2.0 Basophils % 0.8 Absolute Neutrophils 13.0 H Absolute Lymphocytes 1.7 Absolute Monocytes 0.9 Absolute Eosinophils 0.3 Absolute Basophils 0.1 Sodium 142.3 Potassium 4.6 Chloride 99 Carbon Dioxide 33 H Anion Gap 10 BUN 48 H Creatinine 1.55 H Est GFR ( Amer) 38 L Est GFR (Non-Af Amer) 32 L Glucose 125 H Calcium 9.1 11/19/17 11/19/17 09:45 09:45 Creatine Kinase 42 CK-MB (CK-2) 0.89 Troponin I 0.020 Assessment & Plan - Diagnosis (1) Hypertensive emergency without congestive heart failure Is this a current diagnosis for this admission?: Yes (2) Left renal artery stenosis Is this a current diagnosis for this admission?: Yes (3) Diastolic CHF Qualifiers: Qualified Code(s): I50.32 - Chronic diastolic (congestive) heart failure Is this a current diagnosis for this admission?: Yes (4) CAD (coronary artery disease) Qualifiers: Coronary Disease-Associated Artery/Lesion type: [place] artery [place] vs. transplanted heart: [place] heart Associated angina: angina presence unspecified Qualified Code(s): I25.10 - Atherosclerotic heart disease of [place] coronary artery without angina pectoris Is this a current diagnosis for this admission?: Yes (5) Diabetes mellitus type 2 in obese Is this a current diagnosis for this admission?: Yes (6) Elevated LFTs Is this a current diagnosis for this admission?: Yes (7) Hypothyroid Qualifiers: Hypothyroidism type: unspecified Qualified Code(s): E03.9 - Hypothyroidism , unspecified Is this a current diagnosis for this admission?: Yes (8) REX (acute kidney injury) Is this a current diagnosis for this admission?: Yes (9) Infection due to Enterobacter cloacae Is this a current diagnosis for this admission?: Yes Plan: Urinary tract infection due to E. cloacae. Add oral Levofloxacin 250 mg po daily to her regimen due to persistent leukocytosis. - Time Time Spent with patient: 25-34 minutes Medications reviewed and adjusted accordingly: Yes Anticipated discharge: Home with Homehealth Within: Other - Inpatient Certification Based on my medical assessment, after consideration of the patient's comorbidities, presenting symptoms, or acuity I expect that the services needed warrant INPATIENT care.: Yes I certify that my determination is in accordance with my understanding of Medicare's requirements for reasonable and necessary INPATIENT services [42 CFR 412.3e].: Yes Medical Necessity: Need Close Monitoring Due to Risk of Patient Decompensation, Need For Continuous Telemetry Monitoring, Need for IV Antibiotics, Risk of Complication if Not Cared For in Hospital 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 Decrease Furosemide to 40 mg po daily. D/C Ferrous sulfate and Vitamin. Obtain CBC with diff, 25 (OH ) vitamin D level.
[2017-11-20] MEDS: ATORVASTATIN CALCIUM 10 MG TABLET PO SCH (22:30)
[2017-11-21] MEDS: CLONIDINE HCL 0.1 MG TABLET PO SCH ×3 (06:42→22:31)
[2017-11-21] MEDS: ISOSORBIDE DINITRATE 20 MG TABLET PO SCH ×3 (06:43→22:32)
[2017-11-21] MEDS: HYDRALAZINE HCL 50 MG TABLET PO SCH ×3 (06:43→22:30)
[2017-11-21] MEDS: LEVOTHYROXINE SODIUM 0.075 MG TABLET PO SCH (06:43)
[2017-11-21] MEDS: POTASSIUM CHLORIDE 10 MEQ TABLET.SA PO SCH (11:04)
[2017-11-21] MEDS: AZILSARTAN MEDOXOMIL 80 MG PO SCH (11:04)
[2017-11-21] MEDS: FUROSEMIDE 40 MG TABLET PO SCH (11:05)
[2017-11-21] MEDS: ASPIRIN 81 MG TABLET, ENT COATED PO SCH (11:05)
[2017-11-21] MEDS: LANSOPRAZOLE 30 MG TAB.RAP.DR PO SCH (11:07)
[2017-11-21] MEDS: ENOXAPARIN SODIUM INJ 40 MG/0.4 ML DISP.SYRIN SUBCUT SCH (11:08)
[2017-11-21] MEDS: LEVOFLOXACIN 250 MG TABLET PO SCH (11:10)
[2017-11-21 12:09] LABS: ABSOLUTE BASOPHILS # (AUTO) 0.2 10^3/uL (0.0-0.2); ABSOLUTE EOSINOPHILS # (AUTO) 0.3 10^3/uL (0.0-0.6); ABSOLUTE LYMPHOCYTES (AUTO) 1.3 10^3/uL (0.5-4.7); ABSOLUTE MONOCYTES (AUTO) 0.7 10^3/uL (0.1-1.4); ABSOLUTE NEUT (AUTO) 12.9 10^3/uL (1.7-8.2); EOSINOPHILS % (AUTO) 1.8 % (0-6); HEMATOCRIT 36.5 % (36.0-47.0); HEMOGLOBIN 11.9 g/dL (12.0-15.5); LYMPHOCYTES % (AUTO) 8.2 % (13-45); MEAN CORPUSCULAR HEMOGLOBIN 26.3 pg (27.0-33.4); MEAN CORPUSCULAR HGB CONC 32.7 g/dL (32.0-36.0); MEAN CORPUSCULAR VOLUME 80 fl (80-97); MONOCYTES % (AUTO) 4.6 % (3-13); PLATELET COUNT 568 10^3/uL (150-450); RED BLOOD COUNT 4.54 10^6/uL (3.72-5.28); SEGMENTED NEUTROPHILS % (AUTO) 84.4 % (42-78); TOTAL CELLS COUNTED % (AUTO) 100 %; WHITE BLOOD COUNT 15.3 10^3/uL (4.0-10.5)
--- NOTE | 2017-11-21 14:54 | PDOC PROGRESS REPORT ---
Subjective Progress Note for:: 11/21/17 Subjective:: Patient reported that she is not feeling good in her stomach and declined discharge home today. No nausea, vomiting or abdominal pain. She denied any chest pain or difficulty with her breathing. No headache or dizziness. Reason For Visit: HYPERTENSIVE CRISIS WITHOUT CONGESTIVE HEART Physical Exam Vital Signs: Temp Pulse Resp BP Pulse Ox 98.0 F 61 16 142/48 H 97 11/21/17 12:19 11/21/17 12:19 11/21/17 12:19 11/21/17 12:19 11/21/17 12:19 Intake & Output 11/20/17 11/21/17 11/22/17 06:59 06:59 06:59 Intake Total 1199 1871 600 Output Total 450 Balance 749 1871 600 Weight 79.3 kg 80.9 kg Physical Exam: General appearance: PRESENT: no acute distress Head exam: PRESENT: atraumatic, normocephalic Eye exam: PRESENT: conjunctiva pink, EOMI, PERRLA. ABSENT: scleral icterus Mouth exam: PRESENT: moist Respiratory exam: PRESENT: clear to auscultation solitario Cardiovascular exam: PRESENT: RRR. ABSENT: diastolic murmur, rubs, systolic murmur GI/Abdominal exam: PRESENT: normal bowel sounds, soft. ABSENT: distended, guarding, mass, organomegaly, rebound, tenderness Extremities exam: ABSENT: pedal edema Musculoskeletal exam: PRESENT: deformity - related to multiple joints involvement with arthritis Neurological exam: PRESENT: alert, awake, oriented to person, oriented to place , oriented to time, oriented to situation, CN II-XII grossly intact. ABSENT: motor sensory deficit Psychiatric exam: PRESENT: appropriate affect, normal mood. ABSENT: homicidal ideation, suicidal ideation Skin exam: PRESENT: dry, intact, warm. ABSENT: cyanosis, rash Results Laboratory Results: 11/21/17 11:40 11/20/17 06:11 11/21/17 11:40 WBC 15.3 H RBC 4.54 Hgb 11.9 L Hct 36.5 MCV 80 MCH 26.3 L MCHC 32.7 RDW 18.0 H Plt Count 568 H Seg Neutrophils % 84.4 H Lymphocytes % 8.2 L Monocytes % 4.6 Eosinophils % 1.8 Basophils % 1.0 Absolute Neutrophils 12.9 H Absolute Lymphocytes 1.3 Absolute Monocytes 0.7 Absolute Eosinophils 0.3 Absolute Basophils 0.2 11/19/17 11/19/17 09:45 09:45 Creatine Kinase 42 CK-MB (CK-2) 0.89 Troponin I 0.020 Assessment & Plan - Diagnosis (1) Hypertensive emergency without congestive heart failure Is this a current diagnosis for this admission?: Yes Plan: Maintain on current anti hypertensive regimen. (2) Left renal artery stenosis Is this a current diagnosis for this admission?: Yes Plan: Patient is schedule for left renal artery stent angioplasty by Dr. Sellers in [place] upon discharge. (3) Infection due to Enterobacter cloacae Is this a current diagnosis for this admission?: Yes Plan: Continue oral Levofloxacin with IV Rocephin coverage UTI. There is minimal improvement in her Leukocytosis. (4) Diastolic CHF Qualifiers: Qualified Code(s): I50.32 - Chronic diastolic (congestive) heart failure Is this a current diagnosis for this admission?: Yes (5) CAD (coronary artery disease) Qualifiers: Coronary Disease-Associated Artery/Lesion type: [place] artery [place] vs. transplanted heart: [place] heart Associated angina: angina presence unspecified Qualified Code(s): I25.10 - Atherosclerotic heart disease of [place] coronary artery without angina pectoris Is this a current diagnosis for this admission?: Yes (6) Diabetes mellitus type 2 in obese Is this a current diagnosis for this admission?: Yes Plan: Add dietary restriction for her diabetes mellitus management in view of her significant hyperglycemia. (7) Elevated LFTs Is this a current diagnosis for this admission?: Yes (8) Hypothyroid Qualifiers: Hypothyroidism type: unspecified Qualified Code(s): E03.9 - Hypothyroidism , unspecified Is this a current diagnosis for this admission?: Yes (9) REX (acute kidney injury) Is this a current diagnosis for this admission?: Yes - Time Time Spent with patient: 25-34 minutes Medications reviewed and adjusted accordingly: Yes Anticipated discharge: Home Within: Other - Inpatient Certification Based on my medical assessment, after consideration of the patient's comorbidities, presenting symptoms, or acuity I expect that the services needed warrant INPATIENT care.: Yes I certify that my determination is in accordance with my understanding of Medicare's requirements for reasonable and necessary INPATIENT services [42 CFR 412.3e].: Yes Medical Necessity: Need Close Monitoring Due to Risk of Patient Decompensation, Need For Continuous Telemetry Monitoring, Need for IV Antibiotics, Risk of Complication if Not Cared For in Hospital Post Hospital Care: D/C Rn Orthopaedics Documentation - Plan Summary Plan Summary: See attending physician orders.
[2017-11-21] MEDS: CEFTRIAXONE SODIUM 1,000 MG in NORMAL SALINE 100 ML IV SCH (15:02)
[2017-11-21] MEDS: ATORVASTATIN CALCIUM 10 MG TABLET PO SCH (22:29)
[2017-11-22] MEDS ORDERED: ACETAMINOPHEN 325 MG TABLET ONE (02:22)
[2017-11-22] MEDS: ACETAMINOPHEN 325 MG TABLET PO PRN (02:23)
[2017-11-22] MEDS: HYDRALAZINE HCL 50 MG TABLET PO SCH ×3 (06:00→21:03)
[2017-11-22] MEDS: LEVOTHYROXINE SODIUM 0.075 MG TABLET PO SCH (06:01)
[2017-11-22] MEDS: ISOSORBIDE DINITRATE 20 MG TABLET PO SCH ×3 (06:01→21:03)
[2017-11-22] MEDS: CLONIDINE HCL 0.1 MG TABLET PO SCH ×3 (06:02→21:04)
[2017-11-22 10:47] LABS: ABSOLUTE BASOPHILS # (AUTO) 0.1 10^3/uL (0.0-0.2); ABSOLUTE EOSINOPHILS # (AUTO) 0.3 10^3/uL (0.0-0.6); ABSOLUTE LYMPHOCYTES (AUTO) 1.6 10^3/uL (0.5-4.7); ABSOLUTE NEUT (AUTO) 12.9 10^3/uL (1.7-8.2); BASOPHILS % (AUTO) 0.4 % (0-2); EOSINOPHILS % (AUTO) 2.1 % (0-6); HEMATOCRIT 35.2 % (36.0-47.0); HEMOGLOBIN 11.7 g/dL (12.0-15.5); LYMPHOCYTES % (AUTO) 10.2 % (13-45); MEAN CORPUSCULAR HEMOGLOBIN 26.5 pg (27.0-33.4); MEAN CORPUSCULAR HGB CONC 33.3 g/dL (32.0-36.0); MEAN CORPUSCULAR VOLUME 80 fl (80-97); MONOCYTES % (AUTO) 6.1 % (3-13); PLATELET COUNT 619 10^3/uL (150-450); RED BLOOD COUNT 4.42 10^6/uL (3.72-5.28); RED CELL DISTRIBUTION WIDTH 18.1 % (11.5-14.0); SEGMENTED NEUTROPHILS % (AUTO) 81.2 % (42-78); TOTAL CELLS COUNTED % (AUTO) 100 %; WHITE BLOOD COUNT 15.9 10^3/uL (4.0-10.5)
[2017-11-22 10:51] LABS: ANION GAP 9 (5-19); BLOOD UREA NITROGEN 54 mg/dL (7-20); CALCIUM 8.9 mg/dL (8.4-10.2); CARBON DIOXIDE 29 mmol/L (22-30); CHLORIDE 100 mmol/L (98-107); GLUCOSE 160 mg/dL (75-110); POTASSIUM 4.4 mmol/L (3.6-5.0); SODIUM 137.9 mmol/L (137-145)
[2017-11-22] MEDS: LEVOFLOXACIN 250 MG TABLET PO SCH (10:58)
[2017-11-22] MEDS: LANSOPRAZOLE 30 MG TAB.RAP.DR PO SCH (10:58)
[2017-11-22] MEDS: FUROSEMIDE 40 MG TABLET PO SCH (10:58)
[2017-11-22] MEDS: POTASSIUM CHLORIDE 10 MEQ TABLET.SA PO SCH (10:58)
[2017-11-22] MEDS: ENOXAPARIN SODIUM INJ 40 MG/0.4 ML DISP.SYRIN SUBCUT SCH (10:58)
[2017-11-22] MEDS: ASPIRIN 81 MG TABLET, ENT COATED PO SCH (10:58)
[2017-11-22] MEDS: AZILSARTAN MEDOXOMIL 80 MG PO SCH (11:01)
[2017-11-22] MEDS: CEFTRIAXONE SODIUM 1,000 MG in NORMAL SALINE 100 ML IV SCH (15:54)
--- NOTE | 2017-11-22 19:57 | PDOC PROGRESS REPORT ---
Subjective Progress Note for:: 11/22/17 Subjective:: Patient was seen by the bedside, admitted for the management of hypertensive emergency Reason For Visit: HYPERTENSIVE CRISIS WITHOUT CONGESTIVE HEART Physical Exam Vital Signs: Temp Pulse Resp BP Pulse Ox 97.3 F 49 L 17 146/54 H 99 11/22/17 15:33 11/22/17 15:33 11/22/17 15:33 11/22/17 15:33 11/22/17 15:33 Intake & Output 11/21/17 11/22/17 11/23/17 06:59 06:59 06:59 Intake Total 1871 1252 474 Output Total 950 Balance 1871 1252 -476 Weight 80.9 kg 81.6 kg General appearance: PRESENT: no acute distress Eye exam: PRESENT: PERRLA Respiratory exam: PRESENT: clear to auscultation solitario Cardiovascular exam: PRESENT: +S1, +S2 GI/Abdominal exam: PRESENT: soft Neurological exam: PRESENT: alert Results Laboratory Results: 11/22/17 10:17 11/22/17 10:17 11/22/17 11/22/17 10:17 10:17 WBC 15.9 H RBC 4.42 Hgb 11.7 L Hct 35.2 L MCV 80 MCH 26.5 L MCHC 33.3 RDW 18.1 H Plt Count 619 H Seg Neutrophils % 81.2 H Lymphocytes % 10.2 L Monocytes % 6.1 Eosinophils % 2.1 Basophils % 0.4 Absolute Neutrophils 12.9 H Absolute Lymphocytes 1.6 Absolute Monocytes 1.0 Absolute Eosinophils 0.3 Absolute Basophils 0.1 Sodium 137.9 Potassium 4.4 Chloride 100 Carbon Dioxide 29 Anion Gap 9 BUN 54 H Creatinine 1.53 H Est GFR ( Amer) 39 L Est GFR (Non-Af Amer) 32 L Glucose 160 H Calcium 8.9 11/19/17 11/19/17 09:45 09:45 Creatine Kinase 42 CK-MB (CK-2) 0.89 Troponin I 0.020 Assessment & Plan - Diagnosis (1) Hypertensive emergency Is this a current diagnosis for this admission?: Yes Plan: Continue treatment (2) Hypertensive emergency without congestive heart failure Is this a current diagnosis for this admission?: Yes (3) Accelerated hypertension Is this a current diagnosis for this admission?: Yes
[2017-11-22] MEDS: ATORVASTATIN CALCIUM 10 MG TABLET PO SCH (21:03)
[2017-11-23] MEDS: LEVOTHYROXINE SODIUM 0.075 MG TABLET PO SCH (05:00)
[2017-11-23] MEDS: ISOSORBIDE DINITRATE 20 MG TABLET PO SCH ×3 (05:00→22:24)
[2017-11-23] MEDS: CLONIDINE HCL 0.1 MG TABLET PO SCH ×3 (05:01→22:21)
[2017-11-23] MEDS: HYDRALAZINE HCL 50 MG TABLET PO SCH ×3 (05:02→22:20)
[2017-11-23] MEDS: ASPIRIN 81 MG TABLET, ENT COATED PO SCH (09:25)
[2017-11-23] MEDS: ENOXAPARIN SODIUM INJ 40 MG/0.4 ML DISP.SYRIN SUBCUT SCH (09:25)
[2017-11-23] MEDS: LEVOFLOXACIN 250 MG TABLET PO SCH (09:25)
[2017-11-23] MEDS: POTASSIUM CHLORIDE 10 MEQ TABLET.SA PO SCH (09:25)
[2017-11-23] MEDS: LANSOPRAZOLE 30 MG TAB.RAP.DR PO SCH (09:25)
[2017-11-23] MEDS: FUROSEMIDE 40 MG TABLET PO SCH (09:25)
[2017-11-23] MEDS: AZILSARTAN MEDOXOMIL 80 MG PO SCH (09:26)
[2017-11-23] MEDS: CEFTRIAXONE SODIUM 1,000 MG in NORMAL SALINE 100 ML IV SCH (14:48)
--- NOTE | 2017-11-23 15:45 | PDOC PROGRESS REPORT ---
Subjective Progress Note for:: 11/23/17 Subjective:: Patient was seen by the bedside, admitted for the management of hypertensive emergency Reason For Visit: HYPERTENSIVE CRISIS WITHOUT CONGESTIVE HEART Physical Exam Vital Signs: Temp Pulse Resp BP Pulse Ox 97.5 F 59 L 17 148/54 H 98 11/23/17 11:29 11/23/17 14:00 11/23/17 11:29 11/23/17 11:29 11/23/17 11:29 Intake & Output 11/22/17 11/23/17 11/24/17 06:59 06:59 06:59 Intake Total 1252 1084 118 Output Total 1650 200 Balance 1252 -566 -82 Weight 81.6 kg General appearance: PRESENT: no acute distress Eye exam: PRESENT: PERRLA Respiratory exam: PRESENT: clear to auscultation solitario Cardiovascular exam: PRESENT: +S2 GI/Abdominal exam: PRESENT: soft Neurological exam: PRESENT: alert Results Laboratory Results: 11/22/17 10:17 11/22/17 10:17 11/19/17 11/19/17 09:45 09:45 Creatine Kinase 42 CK-MB (CK-2) 0.89 Troponin I 0.020 Assessment & Plan - Diagnosis (1) Hypertensive emergency Is this a current diagnosis for this admission?: Yes (2) Hypertensive emergency without congestive heart failure Is this a current diagnosis for this admission?: Yes (3) Accelerated hypertension Is this a current diagnosis for this admission?: Yes
[2017-11-23] MEDS: ACETAMINOPHEN 325 MG TABLET PO PRN (18:05)
[2017-11-23] MEDS: ATORVASTATIN CALCIUM 10 MG TABLET PO SCH (22:23)
[2017-11-24] MEDS: ACETAMINOPHEN 325 MG TABLET PO PRN (03:51)
[2017-11-24] MEDS: CLONIDINE HCL 0.1 MG TABLET PO SCH ×2 (05:05→14:57)
[2017-11-24] MEDS: LEVOTHYROXINE SODIUM 0.075 MG TABLET PO SCH (05:05)
[2017-11-24] MEDS: ISOSORBIDE DINITRATE 20 MG TABLET PO SCH ×2 (05:05→14:58)
[2017-11-24] MEDS: HYDRALAZINE HCL 50 MG TABLET PO SCH ×2 (05:06→14:57)
[2017-11-24 07:51] LABS: ABSOLUTE BASOPHILS # (AUTO) 0.1 10^3/uL (0.0-0.2); ABSOLUTE EOSINOPHILS # (AUTO) 0.3 10^3/uL (0.0-0.6); ABSOLUTE LYMPHOCYTES (AUTO) 1.4 10^3/uL (0.5-4.7); ABSOLUTE MONOCYTES (AUTO) 0.8 10^3/uL (0.1-1.4); BASOPHILS % (AUTO) 0.4 % (0-2); EOSINOPHILS % (AUTO) 2.4 % (0-6); HEMATOCRIT 36.4 % (36.0-47.0); HEMOGLOBIN 12.2 g/dL (12.0-15.5); LYMPHOCYTES % (AUTO) 10.5 % (13-45); MEAN CORPUSCULAR HEMOGLOBIN 26.4 pg (27.0-33.4); MEAN CORPUSCULAR HGB CONC 33.4 g/dL (32.0-36.0); MEAN CORPUSCULAR VOLUME 79 fl (80-97); MONOCYTES % (AUTO) 5.8 % (3-13); PLATELET COUNT 680 10^3/uL (150-450); RED BLOOD COUNT 4.61 10^6/uL (3.72-5.28); RED CELL DISTRIBUTION WIDTH 18.1 % (11.5-14.0); SEGMENTED NEUTROPHILS % (AUTO) 80.9 % (42-78); TOTAL CELLS COUNTED % (AUTO) 100 %; WHITE BLOOD COUNT 13.6 10^3/uL (4.0-10.5)
[2017-11-24 08:09] LABS: ANION GAP 10 (5-19); BLOOD UREA NITROGEN 50 mg/dL (7-20); CALCIUM 9.1 mg/dL (8.4-10.2); CARBON DIOXIDE 29 mmol/L (22-30); CHLORIDE 100 mmol/L (98-107); GLUCOSE 116 mg/dL (75-110); SODIUM 138.5 mmol/L (137-145)
[2017-11-24 08:13] LABS: POTASSIUM 4.8 mmol/L (3.6-5.0)
[2017-11-24] MEDS: POTASSIUM CHLORIDE 10 MEQ TABLET.SA PO SCH (10:19)
[2017-11-24] MEDS: LEVOFLOXACIN 250 MG TABLET PO SCH (10:19)
[2017-11-24] MEDS: ASPIRIN 81 MG TABLET, ENT COATED PO SCH (10:20)
[2017-11-24] MEDS: AZILSARTAN MEDOXOMIL 80 MG PO SCH (10:20)
[2017-11-24] MEDS: LANSOPRAZOLE 30 MG TAB.RAP.DR PO SCH (10:20)
[2017-11-24] MEDS: ENOXAPARIN SODIUM INJ 40 MG/0.4 ML DISP.SYRIN SUBCUT SCH (10:20)
[2017-11-24] MEDS: FUROSEMIDE 40 MG TABLET PO SCH (10:20)
[2017-11-24 17:34] VITALS: BP 145/54
--- NOTE | 2017-11-24 18:52 | PDOC DISCHARGE SUMMARY ---
General - Admit/Disc Date/PCP Admission Date/Primary Care Provider: 11/18/17 19:39 ERENDIRA KARLEE Discharge Date: 11/24/17 - Discharge Diagnosis (1) Hypertensive emergency without congestive heart failure Is this a current diagnosis for this admission?: Yes (2) Left renal artery stenosis Is this a current diagnosis for this admission?: Yes (3) REX (acute kidney injury) Is this a current diagnosis for this admission?: Yes (4) Infection due to Enterobacter cloacae Is this a current diagnosis for this admission?: Yes (5) Diastolic CHF Is this a current diagnosis for this admission?: Yes (6) CAD (coronary artery disease) Is this a current diagnosis for this admission?: Yes (7) Diabetes mellitus type 2 in obese Is this a current diagnosis for this admission?: Yes (8) Elevated LFTs Is this a current diagnosis for this admission?: Yes (9) Hypothyroid Is this a current diagnosis for this admission?: Yes - Additional Information Resuscitation Status: Full Code Prescriptions: Atorvastatin Calcium 10 mg PO Q48H #15 tablet Hydralazine HCl 100 mg PO TID #90 tablet Isosorbide Dinitrate [Isordil Titradose 20 mg Tablet] 20 mg PO Q8 #90 tablet Levofloxacin [Levaquin 250 mg Tablet] 250 mg PO DAILY #3 tablet Home Medications: Aspirin [Aspirin EC] 81 mg PO DAILY 11/15/17 Azilsartan Medoxomil [Edarbi] 80 mg PO DAILY 11/15/17 Clonidine HCl [Catapres 0.3 mg Tablet] 0.3 mg PO Q8 11/15/17 Ergocalciferol (Vitamin D2) [Vitamin D2] 2,000 unit PO DAILY 11/15/17 Furosemide [Lasix 40 mg Tablet] 40 mg PO BID 11/15/17 Iron Polysaccharide Complex [Ferrex 150] 150 mg PO DAILY 11/15/17 Levothyroxine Sodium [Synthroid 0.075 mg Tablet] 0.075 mg PO Q6AM 11/15/17 Omeprazole 40 mg PO DAILY 11/15/17 Potassium Chloride [Klor-Con 10 Meq Tablet.sa] 20 meq PO DAILY 11/15/17 Atorvastatin Calcium 10 mg PO Q48H #15 tablet 11/24/17 Hydralazine HCl 100 mg PO TID #90 tablet 11/24/17 Isosorbide Dinitrate [Isordil Titradose 20 mg Tablet] 20 mg PO Q8 #90 tablet Levofloxacin [Levaquin 250 mg Tablet] 250 mg PO DAILY #3 tablet 11/24/17 History of Present Illness History of Present Illness: MIMI VALENTIN is a 87 year old female known to my practice who presented to the ED with reported elevated blood pressure ongoing for several days. She denied any associated chest pain or difficulty with her breathing. No leg swelling, PND or orthopnea. She has history of left renal artery stenosis as per her MRA completed at this facility on 10/10/2017 and schedule for surgical intervention by stent angioplasty procedure very soon. Her initial evaluation in the ED was remarkable for severely elevated blood pressure. She was treated with repeated doses IV Hydralazine without sustained improvement. She was subsequently in need for IV Cardene which was eventually cancelled due to her systolic blood pressure in downward trend after oral Hydralazine administration. She was advised admission to IMCU on observation status. Her morbidities include Diastolic Congestive Heart Failure, Coronary Artery Disease s/p stent angioplasty, Hypertension, Hypercholesterolemia, diet controlled Diabetes Mellitus Type 2, Hypothyroidism, Gastroesophageal Reflux Disease Osteoarthritis. Hospital Course Hospital Course: Patient was admitted to hypertension urgency. Her initial need for ICU admission was downgraded to IMCU due to adequate response to anti hypertensive medication management. Adjustment was made to her Hydralazine with addition of Isosorbide Dinitrate. Her blood pressure have been in acceptable range based on her underlying issue with left renal artery stenosis. Patient had culture proven E. Cloacae sensitive to Levofloxacin. Her initial leukocytosis is currently on downward trend. She remain afebrile without reported chills, nausea , or vomiting. No abdominal pain. She is schedule for stent angioplasty procedure as earlier scheduled by Dr. Redd upon discharge and after preoperative evaluation regarding her urinary tract infection status. She is agrreable to discharge home today. She will follow up in the office with me as instructed upon discharge. Physical Exam Vital Signs: Temp Pulse Resp BP Pulse Ox 97.8 F 61 18 145/54 H 99 11/24/17 16:01 11/24/17 16:01 11/24/17 16:01 11/24/17 16:01 11/24/17 16:01 Intake & Output 11/23/17 11/24/17 11/25/17 06:59 06:59 06:59 Intake Total 1084 1048 350 Output Total 1650 200 800 Balance -566 848 -450 Physical Exam: General appearance: PRESENT: no acute distress Head exam: PRESENT: atraumatic, normocephalic Eye exam: PRESENT: conjunctiva pink, EOMI, PERRLA. ABSENT: scleral icterus Mouth exam: PRESENT: moist Respiratory exam: PRESENT: clear to auscultation solitario Cardiovascular exam: PRESENT: RRR. ABSENT: diastolic murmur, rubs, systolic murmur GI/Abdominal exam: PRESENT: normal bowel sounds, soft. ABSENT: distended, guarding, mass, organomegaly, rebound, tenderness Extremities exam: ABSENT: pedal edema Musculoskeletal exam: PRESENT: deformity - related to multiple joints involvement with arthritis Neurological exam: PRESENT: alert, awake, oriented to person, oriented to place , oriented to time, oriented to situation, CN II-XII grossly intact. ABSENT: motor sensory deficit Psychiatric exam: PRESENT: appropriate affect, normal mood. ABSENT: homicidal ideation, suicidal ideation Skin exam: PRESENT: dry, intact, warm. ABSENT: cyanosis, rash Results Laboratory Results: 11/24/17 07:34 11/24/17 07:34 11/24/17 11/24/17 07:34 07:34 WBC 13.6 H RBC 4.61 Hgb 12.2 Hct 36.4 MCV 79 L MCH 26.4 L MCHC 33.4 RDW 18.1 H Plt Count 680 H Seg Neutrophils % 80.9 H Lymphocytes % 10.5 L Monocytes % 5.8 Eosinophils % 2.4 Basophils % 0.4 Absolute Neutrophils 11.0 H Absolute Lymphocytes 1.4 Absolute Monocytes 0.8 Absolute Eosinophils 0.3 Absolute Basophils 0.1 Sodium 138.5 Potassium 4.8 Chloride 100 Carbon Dioxide 29 Anion Gap 10 BUN 50 H Creatinine 1.35 H Est GFR ( Amer) 45 L Est GFR (Non-Af Amer) 37 L Glucose 116 H Calcium 9.1 11/19/17 11/19/17 09:45 09:45 Creatine Kinase 42 CK-MB (CK-2) 0.89 Troponin I 0.020 Qualifiers - * PATEINT BEING DISCHARGED WITH ANY OF THE FOLLOWING DIAGNOSIS?: No Plan Discharge Plan: D/C home today. Follow up in the office as instructed upon discharge. Time Spent: Less than 30 Minutes
== END 2017-11-24 19:54 | disposition home or self-care (01) | DRG 305 ==
LOC: ER 12:53 → EH 17:43 → INTOOBSV 17:43 → 3S 19:13 → OBSVTOIN 11-18 19:39
PROVIDERS: ADMIT Internal Medicine Geriatric Medicine; ATTEND Internal Medicine Geriatric Medicine
DX: I16.1 Hypertensive emergency (principal); I50.32 Chronic diastolic (congestive) heart failure; N17.9 Acute kidney failure, unspecified; N39.0 Urinary tract infection, site not specified; I11.0 Hypertensive heart disease with heart failure; I25.10 Atherosclerotic heart disease of native coronary artery without angina pectoris; E66.9 Obesity, unspecified; I70.1 Atherosclerosis of renal artery; E03.9 Hypothyroidism, unspecified; B96.89 Other specified bacterial agents as the cause of diseases classified elsewhere; K21.9 Gastro-esophageal reflux disease without esophagitis; Z96.653 Presence of artificial knee joint, bilateral; Z90.49 Acquired absence of other specified parts of digestive tract; Z90.710 Acquired absence of both cervix and uterus; Z95.5 Presence of coronary angioplasty implant and graft; Z79.82 Long term (current) use of aspirin; Z79.899 Other long term (current) drug therapy; M19.90 Unspecified osteoarthritis, unspecified site; E11.65 Type 2 diabetes mellitus with hyperglycemia
CPT/HCPCS: 36415; 80048; 80053; 81001; 82550; 82553; 82962; 84484; 85025; 87086; 87088; 87186; 93005; 93010; 96374; 96376; 99291; G0378; J0360; J0696; J1650; J3490

== ENCOUNTER 2017-11-24 23:29 | Emergency (ER) | payer MEDICARE, BC ==
[2017-11-25] MEDS ORDERED: CLONIDINE HCL 0.2 MG TABLET PO ONE (00:32)
[2017-11-25] MEDS ORDERED: HYDRALAZINE HCL 50 MG TABLET PO ONE (00:33)
[2017-11-25] MEDS ORDERED: ISOSORBIDE DINITRATE 20 MG TABLET PO ONE (00:34)
--- NOTE | 2017-11-25 00:39 | ER Document Report ---
ED General - General Chief Complaint: Blood Pressure Problem Stated Complaint: BLOOD PRESSURE PROBLEMS Time Seen by Provider: 11/25/17 00:08 Notes: Patient is an 87-year-old female with a past medical history of hypertension, hyperlipidemia, known renal artery stenosis was just discharged from the hospital less than several hours ago who presents with concerns of headache and hypertension. The patient was hospitalized for this reason earlier today. She states that when she got home she started to feel poorly feeling like she could feel her heartbeat everywhere. She states that she had a gradual onset of a dull, throbbing, bitemporal headache that has been progressively worsening since onset. Her son at the bedside states that he took her blood pressure and found to be extremely high. She therefore returned to the emergency department. She states that she has been taking all medications as directed but is uncertain whether or not she received her nighttime dose of antihypertensives prior to being discharged. She has not noted that anything seems to worsen her symptoms. She denies any associated chest pain or shortness of breath, vomiting, weakness, numbness or confusion. TRAVEL OUTSIDE OF THE [place] IN LAST 30 DAYS: No - Related Data Allergies/Adverse Reactions: No Known Allergies Allergy (Verified 11/15/17 14:30) Past Medical History - General Information source: Patient - Social History Smoking Status: Never Smoker Frequency of alcohol use: None Drug Abuse: None Lives with: Family Family History: Reviewed & Not Pertinent - Past Medical History Cardiac Medical History: Reports: Hx Congestive Heart Failure - Diastolic, Hx Coronary Artery Disease - Previous stent implant, Hx Hypercholesterolemia, Hx Hypertension Denies: Hx DVT, Hx Pulmonary Embolism Pulmonary Medical History: Denies: Hx Asthma, Hx COPD, Hx Sleep Apnea Neurological Medical History: Denies: Hx Seizures Endocrine Medical History: Reports: Hx Diabetes Mellitus Type 2 - Diet controlled, Hx Hypothyroidism. Denies: Hx Diabetes Mellitus Type 1, Hx Hyperthyroidism Renal/ Medical History: Denies: Hx Peritoneal Dialysis GI Medical History: Reports: Hx Gastroesophageal Reflux Disease - Mild. Denies : Hx Cirrhosis, Hx Hepatitis Musculoskeltal Medical History: Reports Hx Arthritis Psychiatric Medical History: Denies: Hx Depression Infectious Medical History: Denies: Hx C-Diff, Hx Hepatitis, Hx MRSA Past Surgical History: Reports: Hx Appendectomy, Hx Cardiac Surgery - Stent, Hx Cholecystectomy, Hx Coronary Stent, Hx Hysterectomy, Hx Orthopedic Surgery - bilateral knee replacement; hip replacement, Other - Bilateral cataract surgery - Immunizations Hx Diphtheria, Pertussis, Tetanus Vaccination: Yes Review of Systems - Review of Systems Notes: Constitutional: Negative for fever. HENT: Negative for sore throat. Eyes: Negative for visual changes. Cardiovascular: Negative for chest pain. Respiratory: Negative for shortness of breath. Gastrointestinal: Negative for abdominal pain, vomiting or diarrhea. Genitourinary: Negative for dysuria. Musculoskeletal: Negative for back pain. Skin: Negative for rash. Neurological: Positive for headache 10 point ROS negative except as marked above and in HPI. Physical Exam - Vital signs Vitals: Temp Pulse Resp BP Pulse Ox 97.5 F 76 16 223/90 H 97 11/24/17 23:38 11/24/17 23:38 11/24/17 23:38 11/24/17 23:38 11/24/17 23:38 Interpretation: Hypertensive Notes: PHYSICAL EXAMINATION: GENERAL: Well-appearing, well-nourished and in no acute distress. HEAD: Atraumatic, normocephalic. EYES: Pupils equal round and reactive to light, extraocular movements intact, sclera anicteric, conjunctiva are normal. ENT: nares patent, oropharynx clear without exudates. Moist mucous membranes. NECK: Normal range of motion, supple without lymphadenopathy LUNGS: Breath sounds clear to auscultation bilaterally and equal. No wheezes rales or rhonchi. HEART: Regular rate and rhythm without murmurs ABDOMEN: Soft, nontender, normoactive bowel sounds. No guarding, no rebound. No masses appreciated. EXTREMITIES: Normal range of motion, no pitting or edema. No cyanosis. NEUROLOGICAL: Face symmetric. Tongue protrudes midline. Extraocular motions intact. Pupils are 2 mm and equally reactive. Normal speech, normal gait. 5 out of 5 strength in both the distal and proximal upper and lower extremities bilaterally. Sensation is grossly intact throughout. Finger to nose testing normal. Pronator drift normal. PSYCH: Normal mood, normal affect. SKIN: Warm, Dry, normal turgor, no rashes or lesions noted. Course - Re-evaluation Re-evalutation: 11/25/17 00:36 Patient presents with headache and a feeling of "I can feel my heart beating everywhere". The patient was discharged approximately 5 hours ago from inpatient hospitalization with Dr. Desir for hypertensive urgency and effectively the same symptoms. She denies any focal weakness, numbness, confusion, chest pain or shortness of breath. She has not yet taken her nighttime doses of isosorbide dinitrate, hydralazine or clonidine. Her initial blood pressure is in the 220 systolic. Will give her home doses of these medications, obtain screening laboratories, EKG and reassess. 11/25/17 02:24 Patient has had significant improvement in her blood pressure 174/91. Her head headache and additional symptoms have resolved. Repeat laboratories unremarkable. At this time will discharge with return precautions and follow- up recommendations. Verbal discharge instructions given a the bedside and opportunity for questions given. Medication warnings reviewed. Patient is in agreement with this plan and has verbalized understanding of return precautions and the need for primary care follow-up in the next 24-72 hours. - Vital Signs Vital signs: Temp Pulse Resp BP Pulse Ox 97.5 F 76 13 179/83 H 97 11/24/17 23:38 11/24/17 23:38 11/25/17 02:01 11/25/17 02:01 11/25/17 02:01 - Laboratory Result Diagrams: 11/25/17 00:30 11/25/17 00:30 Laboratory results interpreted by me: 11/25/17 11/25/17 00:30 00:30 WBC 14.1 H MCH 26.7 L RDW 17.7 H Plt Count 744 H Seg Neuts % (Manual) 82 H Lymphocytes % (Manual) 9 L Monocytes % (Manual) 2 L Abs Neuts (Manual) 11.6 H Sodium 135.9 L Chloride 96 L BUN 55 H Creatinine 1.44 H Est GFR ( Amer) 42 L Est GFR (Non-Af Amer) 34 L Glucose 130 H - EKG Interpretation by Me Additional EKG results interpreted by me: 11/25/17 01:23 Sinus rhythm. Rate 72. First-degree AV block. LVH. No ST elevations or depressions. Discharge - Discharge Clinical Impression: Hypertensive urgency Headache Qualifiers: Headache type: unspecified Headache chronicity pattern: acute headache Intractability: not intractable Qualified Code(s): R51 - Headache Condition: Good Disposition: HOME, SELF-CARE Additional Instructions: Please continue to take your medications as prescribed by Dr. Desir. Follow- up as scheduled. Return if you develop chest pain, headache, shortness of breath, pass out, or have any other symptoms that are worrisome to you. Referrals: ERENDIRA DESIR MD [Primary Care Provider] - Follow up as needed
[2017-11-25 00:48] LABS: HEMATOCRIT 40.3 % (36.0-47.0); HEMOGLOBIN 13.4 g/dL (12.0-15.5); MEAN CORPUSCULAR HEMOGLOBIN 26.7 pg (27.0-33.4); MEAN CORPUSCULAR HGB CONC 33.2 g/dL (32.0-36.0); MEAN CORPUSCULAR VOLUME 80 fl (80-97); PLATELET COUNT 744 10^3/uL (150-450); RED BLOOD COUNT 5.01 10^6/uL (3.72-5.28); RED CELL DISTRIBUTION WIDTH 17.7 % (11.5-14.0); WHITE BLOOD COUNT 14.1 10^3/uL (4.0-10.5)
[2017-11-25 01:00] LABS: ANION GAP 10 (5-19); BLOOD UREA NITROGEN 55 mg/dL (7-20); CALCIUM 9.5 mg/dL (8.4-10.2); CARBON DIOXIDE 30 mmol/L (22-30); CHLORIDE 96 mmol/L (98-107); GLUCOSE 130 mg/dL (75-110); POTASSIUM 4.4 mmol/L (3.6-5.0); SODIUM 135.9 mmol/L (137-145)
[2017-11-25 01:07] LABS: ABSOLUTE LYMPHOCYTES# (MANUAL) 1.6 10^3/uL (0.5-4.7); ABSOLUTE MONOCYTES # (MANUAL) 0.3 10^3/uL (0.1-1.4); ABSOLUTE NEUTROPHILS# (MANUAL) 11.6 10^3/uL (1.7-8.2); BASOPHILS % (MANUAL) 1 % (0-2); EOSINOPHILS % (MANUAL) 4 % (0-6); LYMPHOCYTES % (MANUAL) 9 % (13-45); MONOCYTES % (MANUAL) 2 % (3-13); SEGMENTED NEUTROPHILS % (MAN) 82 % (42-78); TOTAL CELLS COUNTED 100
[2017-11-25 01:09] LABS: PLATELET COMMENT INCREASED; PLATELET LARGE PRESENT
[2017-11-25 01:10] LABS: PLATELET GIANT PRESENT
[2017-11-25 01:11] LABS: TOXIC GRANULATION SLIGHT
[2017-11-25 01:14] LABS: ANISOCYTOSIS 1+; HYPOCHROMASIA SLIGHT; OVALOCYTES SLIGHT; POIKILOCYTOSIS SLIGHT; POLYCHROMASIA SLIGHT
[2017-11-25 02:08] VITALS: BP 179/83
--- NOTE | 2017-11-25 09:23 | EKG REPORT ---
SEVERITY:- ABNORMAL ECG - SINUS RHYTHM FIRST DEGREE AV BLOCK PROBABLE LEFT ATRIAL ABNORMALITY LEFT VENTRICULAR HYPERTROPHY BORDERLINE PROLONGED QT INTERVAL : Confirmed by: Caio Rebollar 25-Nov-2017 09:23:09
== END 2017-11-25 02:28 | disposition home or self-care (01) ==
LOC: ER 23:29
DX: I10 Essential (primary) hypertension (principal); R51 Headache; E78.5 Hyperlipidemia, unspecified; I50.9 Heart failure, unspecified; I25.10 Atherosclerotic heart disease of native coronary artery without angina pectoris; E78.00 Pure hypercholesterolemia, unspecified; E11.9 Type 2 diabetes mellitus without complications; E03.9 Hypothyroidism, unspecified; Z90.49 Acquired absence of other specified parts of digestive tract; Z90.710 Acquired absence of both cervix and uterus; Z96.653 Presence of artificial knee joint, bilateral; Z96.649 Presence of unspecified artificial hip joint
CPT/HCPCS: 93005; 99284; 36415; 85025; 80048; 84484; 93010; A9270 ×2